=== PATIENT | male | born 1975 | race Caucasian/White ===

== ENCOUNTER 2021-10-01 18:56 | Emergency (ER) | payer OTHER, SELFPAY | END 2021-10-01 19:05 | disposition left against medical advice (07) | LOC: EXPBETH 18:58 | PROVIDERS: Emergency Provider Registered Nurse | DX: Z53.21 Procedure and treatment not carried out due to patient leaving prior to being seen by health care provider (principal) | CPT/HCPCS: 99199 ==

== ENCOUNTER 2022-03-06 06:03 | Observation (INO) | payer BC, SELFPAY ==
[2022-03-06] VITALS (21 sets, daily range): BP systolic 99–158; BP diastolic 56–88; PULSE 65–117; RESP 17–26; TEMP 36.3–37.2; O2SAT 92–100; BMI 25.2
--- NOTE | ~2022-03-06 | US_ITS ---
EXAMINATION: US right upper quadrant DATE: 03/07/2022 13:13 INDICATION: Abdominal pain. TECHNIQUE: Multiple grayscale and Doppler ultrasound images of the abdomen were obtained. COMPARISON: CT abdomen and pelvis 03/06/2022 FINDINGS: The visualized portions of the head, body, and tail of the pancreas are normal. The liver i s normal without focal lesion. There is normal flow in main portal vein. The gallbladder is absent. T he common duct is normal and measures 3 mm. IMPRESSION: 1. Normal right upper quadrant ultrasound status post cholecystectomy. Reviewed, dictated and finalized at location A.
--- NOTE | ~2022-03-06 | CT_ITS ---
EXAMINATION: CT abdomen pelvis w con DATE: 03/06/2022 08:31 INDICATION: Abdominal pain. Nausea and vomiting. TECHNIQUE: Computed tomography (CT) of the abdomen and pelvis was performed with 100 mL Omnipaque 300 intravenous contrast. Automated exposure control and iterative reconstruction technique were employe d. The dose-length product was 471.07 mGy-cm. COMPARISON: None. FINDINGS: The visualized portions of the lung bases demonstrate minimal atelectasis on the right. No pleural effusion. The heart size is normal. No pericardial effusion. In the left hepatic lobe, there is a shunt from the left portal vein to the middle hepatic vein. Calcifications in the spleen are con sistent with old granulomatous disease. There are changes of cholecystectomy. The pancreas, adrenal g lands, and kidneys are normal. There are no dilated loops of bowel. The appendix is normal. There are no pathologically enlarged lymph nodes. There is no free intraperitoneal fluid. There is mild lumbar spondylosis. IMPRESSION: 1. No specific etiology for the patient's symptoms. Reviewed, dictated and finalized at location A.
--- NOTE | ~2022-03-06 | XR_ITS ---
EXAMINATION: XR chest 1V portable DATE: 03/06/2022 06:47 INDICATION: Weakness, nausea and vomiting TECHNIQUE: frontal view of the chest was obtained. COMPARISON: None FINDINGS: Subtle small airspace opacity with sharp linear margins along one side of the left lower lung zone wh ich could represent either airspace disease along side a fissure or a skinfold. No other airspace opa cities, pulmonary edema, pleural effusion or pneumothorax. The cardiomediastinal silhouette is normal . A few likely old left rib fractures. Cholecystectomy clips in right upper quadrant. IMPRESSION: 1. Subtle small airspace opacity at the left lower lung zone which could represent atelectasis, pleur al parenchymal scarring related to a few old left-sided rib fractures, small focus of pneumonia or ar tifactual appearance of a skinfold. Reviewed, dictated and finalized at location A. IMPRESSION: 1. Subtle small airspace opacity at the left lower lung zone which could repres ent atelectasis, pleural parenchymal scarring related to a few old left-sided r ib fractures, small focus of pneumonia or artifactual appearance of a skinfold.
--- NOTE | ~2022-03-06 | XR_ITS ---
EXAMINATION: XR chest 2V DATE: 03/07/2022 12:28 INDICATION: Cough TECHNIQUE: PA and lateral views of the chest were obtained. COMPARISON: Chest radiograph dated 03/06/2022 FINDINGS: The lungs remain clear with no focal airspace opacities, pulmonary edema, pleural effusion or pneumot horax. The cardiomediastinal silhouette is normal. Visualized bones and soft tissues are unremarkable . IMPRESSION: 1. No acute cardiopulmonary disease. Reviewed, dictated and finalized at location A.
[2022-03-06 06:19] LABS: Glucose Point of Care > 500 mg/dl (65-105)
[2022-03-06 06:42] LABS: Alveolar/Arterial O2 Gradient 14.9 mmHg; Base Excess ABG -0.7 mEq/l (+/-2.0); Carboxyhemoglobin 1.8 % THb (0-2.0); Fractional Inspired Oxygen 21 %; Methemoglobin ABG 0.3 %THb (0-1.5); Oxygen Saturation ABG 96.7 % (95.0-100.0); Oxyhemoglobin 94.2 % THb (90.0-100.0); PCO2 ABG 39.7 mmHg (35.0-45.0); PO2 ABG 87.3 mmHg (80.0-100.0); PO2 FiO2 Ratio Arterial Blood 4.16 %; Reduced Hemoglobin 3.7 %THb (0-5.0); Total Hemoglobin 15.8 g/dL (12.0-18.0); pH ABG 7.399 (7.350-7.450)
[2022-03-06 06:43] LABS: Device ROOM AIR; Modified Allen's Test Pass; Site Drawn RIGHT RADIAL
[2022-03-06 06:53] LABS: Basophils Absolute Auto 0.1 K/mm3 (0.0-0.1); Basophils Percent Auto 0.5 % (0.2-1.2); Eosinophils Absolute Auto 0.3 K/mm3 (0-0.3); Eosinophils Percent Auto 2.1 % (0-4.4); Hematocrit 47.2 % (42.0-52.0); Hemoglobin 15.4 g/dL (14.0-18.0); Immature Granulocyte Absolute 0.07 K/mm3 (0.00-0.031); Immature Granulocyte Percent A 0.6 % (0-0.5); Lymphocytes Absolute Auto 2.36 K/mm3 (0.9-3.2); Lymphocytes Percent Auto 18.9 % (18.3-44.2); Mean Corpuscular HGB Conc 32.6 g/dl (32-36); Mean Corpuscular Hemoglobin 30.4 pg (26-34); Mean Corpuscular Volume 93.1 fl (80-100); Mean Platelet Volume 10.2 fl (7.4-10.4); Monocytes Absolute Auto 0.8 K/mm3 (0.1-0.6); Monocytes Percent Auto 6.6 % (2.6-8.5); Neutrophils Absolute Auto 8.9 K/mm3 (1.3-6.7); Neutrophils Percent Auto 71.3 % (45.5-73.1); Platelet Count Result 311 k/mm3 (150-375); Red Blood Count 5.07 M/mm3 (4.6-6.20); Red Cell Distribution Width 13.8 % (11.5-14.5); White Blood Count 12.5 K/mm3 (4.5-10.0)
[2022-03-06 06:57] LABS: Appearance Urine Clear (Clear); Bilirubin Urine Negative (Negative); Blood Urine Negative (Negative); Color Urine Yellow (Yellow); Glucose Urine UA 3+ mg/dL (Negative); Ketones Urine 1+ mg/dL (Negative); Leukocyte Esterase Ur Negative LEU/UL (Negative); Nitrate Urine Negative (Negative); Protein Urine Negative (Negative); Specific Grav Ur <= 1.005 (1.001-1.035); Urobilinogen Urine 0.2 mg/dL (<2.0); pH Urine 5.5 (5.0-9.0)
[2022-03-06 07:01] LABS: Mucus Urine Rare /lpf; RBC Urine 0-2 /hpf (0-2); WBC Urine 0-3 /hpf
[2022-03-06 07:03] LABS: Lactic Acid Reflex 1.8 mmol/L (0.7-2.0)
[2022-03-06] MEDS: SODIUM CHLORIDE 0.9% IV 1,000 ML 999 ML IV CONT ×4 (07:03→16:20)
[2022-03-06 07:05] LABS: Add Urine Microscopic? YES
[2022-03-06 07:07] LABS: Beta-Hydroxybutyrate/Acetoacetate 1.26 mmol/L (0.02-0.27)
[2022-03-06 07:08] LABS: Alanine Aminotransferase 22 U/L (6-50); Albumin Level 4.3 g/dL (3.5-5.1); Alkaline Phosphatase 133 U/L (38-126); Anion Gap 10 mmol/L (8-16); Aspartate Amino Transferase 32 U/L (17-59); Blood Urea Nitrogen 16 mg/dL (9-20); Calcium 9.2 mg/dL (8.4-10.2); Carbon Dioxide 23 mmol/L (22-30); Chloride 102 mmol/L (98-107); Estimated CRCL calculation 120 ml/min; Estimated Glomerular Filt Rate > 60; Glucose 502 mg/dL (65-110); Lipase 92 U/L (23-300); Magnesium 1.8 mg/dL (1.6-2.3); Phosphorus 2.7 mg/dL (2.5-4.5); Potassium 4.7 mmol/L (3.4-5.0); Sodium 135 mmol/L (137-145)
--- NOTE | 2022-03-06 07:08 | ED.RECABL ---
HPI - Recheck/Abnormal Lab/Rx General Chief Complaint: Recheck/Abnormal Lab/Rx Stated Complaint: dka Time Seen by Provider: 03/06/22 07:06 History of Present Illness HPI narrative: The patient is a 46-year-old male with a history of type 1 diabetes, on an insulin pump, presenting to the emergency department for evaluation of nausea, vomiting, abdominal pain in the setting of hyperglycemia at home. Patient noted that his blood sugars were greater than 500s beginning yesterday and he was able to have the pump help control them and they decreased into the 400s overnight. Patient then awakened and had significant lower abdominal pain, recurrent nausea and vomiting this morning and blood sugars have been greater than 500s throughout the morning. Patient has a history of recurrent DKA approximately once yearly per who is providing most of the history. Patient denies fever but does report chills. He denies chest pain, cough or dyspnea. He denies recent travel. He reports loose stools without blood or mucus present. Related Data Allergies Allergy/AdvReac Type Severity Reaction Status Date / Time No Known Allergies Allergy Verified 03/06/22 08:24 Review of Systems Review of Systems: CONSTITUTIONAL: Denies fever, reports chills and diaphoresis ENT: Denies rhinorrhea, congestion, sore throat, or otalgia. CARDIOVASCULAR: Denies chest pain, palpitations, or edema. RESPIRATORY: Denies cough or dyspnea. GASTROINTESTINAL: Reports abdominal pain, nausea and vomiting, reports loose stools/diarrhea GENITOURINARY: Denies dysuria or hematuria. SKIN: Denies rash or itching. MUSCULOSKELETAL: Denies back pain, joint pain, reports myalgias NEUROLOGIC: Denies headache, numbness, or weakness. [facility] Past Medical History Medical History Depression Hypothyroidism Long-term insulin use Type 1 diabetes mellitus Social History Social History Smoking status: Current some day smoker Second hand tobacco smoke exposure: Yes Alcohol intake: never Additional occupation/education comments: Construction Exam Narrative: GENERAL: Awake, alert, ill appearing HEAD: Normocephalic, atraumatic. EYES: PERRLA and EOMI. ENT: Nares clear, no rhinorrhea or epistaxis. Mucous membranes dry NECK: Supple. CHEST: No respiratory distress, breathing even and non labored HEART: Regular rate, sinus rhythm ABDOMEN:Non distended, tender in all 4 quadrants without rebound, rigidity or guarding EXTREMITIES: Normal range of motion. No edema. SKIN: Warm, dry, no rash. NEURO:No focal deficits. Alert and oriented x3, pt ambulatory with narrow based, steady gait Course Vital Signs Vital signs: Vital Signs Temperature 36.5 C 03/06/22 06:14 Pulse Rate 75 03/06/22 06:14 Respiratory Rate 22 H 03/06/22 06:14 Blood Pressure 134/74 03/06/22 06:14 Pulse Oximetry 97 03/06/22 06:14 Oxygen Delivery Room Air 03/06/22 06:14 Temperature 36.5 C 03/06/22 06:14 Pulse Rate 66 03/06/22 07:32 Respiratory Rate 23 H 03/06/22 07:32 Blood Pressure 156/70 H 03/06/22 07:32 Pulse Oximetry 95 03/06/22 07:32 Oxygen Delivery Room Air 03/06/22 06:14 MDM - Recheck/Abnormal Lab/Rx MDM Narrative Medical decision making narrative: Patient is a 46-year-old male presenting to the emergency department for evaluation of nausea, vomiting, abdominal pain as well as elevated blood glucose levels despite insulin pump on and appropriately delivering medication per patient. At time of assessment, patient is ill-appearing, dehydrated, without significant tachycardia. Differential includes electrolyte derangement, hyperglycemia, DKA, gastroenteritis, infection. IV access obtained and labs are drawn. Patient was given a total of 2 L of IV fluids, and an additional third liter based on clinical status and hyperglycemia. Patient without anion gap or metabol
[2022-03-06 07:27] LABS: SARS-CoV-2 RNA PCR Negative
[2022-03-06] MEDS: ONDANSETRON INJ 4 MG/2 ML VIAL IV PUSH ×2 (08:20→12:29)
[2022-03-06 09:20] LABS: Glucose Point of Care 393 mg/dl (65-105)
[2022-03-06] MEDS: INSULIN HUMAN REGULAR (*BKC) 100 UNITS/ML 9 UNITS IV PUSH ×2 (09:29→16:46)
[2022-03-06] MEDS: METOCLOPRAMIDE HCL INJ 10 MG/2 ML VIAL IV PUSH ×2 (09:29→14:19)
[2022-03-06 09:55] LABS: Glucose Point of Care 364 mg/dl (65-105)
[2022-03-06 10:00] LABS: Influenza A QL RT-PCR Negative (Negative); Influenza B QL RT-PCR Negative (Negative)
[2022-03-06] MEDS: LACTATED RINGERS 1,000 ML 125 ML IV CONT (10:32)
[2022-03-06 10:59] LABS: Lactic Acid Reflex 2.2 mmol/L (0.7-2.0)
[2022-03-06 11:17] LABS: Glucose Point of Care 281 mg/dl (65-105)
--- NOTE | 2022-03-06 11:21 | PC.NURSE ---
Patient report received from SAMMY Pablo. All questions answered and care of patient assumed.
--- NOTE | 2022-03-06 12:36 | ADMGEN ---
This patient, Jesus Galaviz, was admitted to IMU Room 209-. Patient/family oriented to hospital policies and general routines including ID bracelet, bed and alarms, visiting hours, pain management, procedures, bathroom and other care routines, personal items, smoking policy, room service/diet, and visiting hours. Information on how to activate the Rapid Response Team has been discussed. Patient/Family are encouraged to report perceived risks to care and to ask questions if they do not understand what they are told or what they should do.
[2022-03-06 12:45] LABS: Glucose Point of Care 315 mg/dl (65-105)
[2022-03-06 13:46] LABS: Reflex Lactic Acid Yes or No Add Lactic
--- NOTE | 2022-03-06 13:56 | PM.IMHP ---
H&P: HPI History of Present Illness Date/Time: 03/06/22 13:56 this is a 46-year-old male patient with the history of diabetes type 1 on insulin pump. He also has a history of depression. The patient was last seen by his agricultural education teacher JOHN Campbell on 01/17/2022who stated that he had no complications on his Medtronic 770 G and was doing well at that time. Patient was over writing boluses at that time. The patient gets a basal rate and boluses sometimes. The patient stated he has been very stressed out recently due to his tartar choosing to live with her mom. Last noted A1c was 6.1 January of this year. The patient noted that he has been having trouble affording his insulin and pump supplies. He reached out to [employer] to get patient assistance. Today the patient came to the emergency room for evaluation of nausea, vomiting, and abdominal pain. The patient stated that his blood sugars have been running greater than 500 that started yesterday. The patient was able to give himself some boluses and his blood sugar decreased into the 400s during the night. His significant other was here earlier and giving information. The patient is spitting up mucus at this time. His white count is noted to be 12.5 today. Sodium 135. Initially his blood sugar was greater than 500 and then came down to 281 and then 315. Lactic acid is 2.2. Urine has 3+ glucose and 1+ ketones. The patient was given Zofran and IV fluids in the emergency room. Abdominal CT shows no specific etiology for patient's symptoms. Chest x-ray was read as 1. Subtle small airspace opacity at the left lower lung zone which could represent atelectasis, pleural parenchymal scarring related to a few old left-sided rib fractures, small focus of pneumonia or artifactual appearance of a skinfold. He was also given Reglan and regular insulin IV. The patient is being admitted to observation status on the date of service of 03/06/2022. Chief Complaint: Symptoms of DKA with elevated blood sugar and nausea. Review of Systems Review of Systems: All systems reviewed & are unremarkable except as noted in HPI and below Constitutional: Constitutional: Reports as per HPI and Reports no additional constitutional complaints Eyes: Eyes: Reports as per HPI and Reports no additional eye complaints ENT: Reports system reviewed and no additional complaints, except as documented and Reports Normal hearing present Cardiovascular: Cardiovascular: Reports no additional cardiovascular complaints Respiratory: Respiratory: Reports no additional respiratory complaints and Reports no additional respiratory complaints Gastrointestinal: Gastrointestinal: Reports as per HPI and Reports no additional gastrointestinal complaints Musculoskeletal: Musculoskeletal: Reports no additional musculoskeletal complaints Integumentary/Breasts: Skin/Breast: Reports system reviewed and no additional complaints, except as docu and Reports as per HPI Neurologic: Reports system reviewed and no additional complaints, except as documented, Reports as per HPI and Reports Normal hearing present Psychiatric: Psychiatric: Reports no additional psychiatric complaints and Reports as per HPI Endocrine: Endocrine: Reports no additional endocrine complaints Hematologic/Lymphatic: Hematologic/Lymphatic: Reports no additional hematologic/lymphatic complaints Allergic/Immunologic: Allergic/Immunologic: Reports no additional allergic/immunologic complaints PMFSH Past Medical History Medical History Depression Hypothyroidism Long-term insulin use Type 1 diabetes mellitus Surgical History Surgical History (Updated 03/06/22 @ 14:10 by Aleja Dowd NP) Hx of cholecystectomy S/P knee surgery Left knee Family History Family History Father Lung cancer metastatic to brain Lung cancer associated cerebellar ataxia Mother A
[2022-03-06] MEDS: LORazepam INJ (*CRX) 2 MG/ML VIAL 0.5 MG IV PUSH (14:44)
[2022-03-06 16:12] LABS: Lactic Acid 4.7 mmol/L (0.7-2.0)
--- NOTE | 2022-03-06 16:15 | PC.NURSE ---
Notified Aleja Dowd NP of critical lactic acid of 4.7 and blood glucose of 449. New order for 1L NS bolus and to give 6 units of Novolog now.
[2022-03-06] MEDS: INSULIN ASPART (*BKC) 100 UNITS/ML SUB-Q ×2 (16:21→21:33)
[2022-03-06] MEDS: SODIUM CHLORIDE 0.9% IV 2,700 ML/1,000 ML BAG 999 ML IV CONT ×3 (16:55→17:54)
[2022-03-06 17:27] LABS: Glucose Point of Care 449 mg/dl (65-105)
[2022-03-06 20:13] LABS: Lactic Acid Reflex 2.1 mmol/L (0.7-2.0)
[2022-03-06 21:02] LABS: Glucose Point of Care 264 mg/dl (65-105)
[2022-03-06] MEDS: FAMOTIDINE 20 MG/2 ML VIAL IV PUSH (21:32)
[2022-03-06 23:28] LABS: Glucose Point of Care 282 mg/dl (65-105)
[2022-03-07] VITALS (10 sets, daily range): BP systolic 103–143; BP diastolic 57–84; PULSE 75–107; RESP 16–18; TEMP 36.3–37.4; O2SAT 96–99; BMI 26.1
[2022-03-07] MEDS: INSULIN ASPART (*BKC) 100 UNITS/ML SUB-Q ×5 (00:52→17:29)
[2022-03-07 05:13] LABS: Glucose Point of Care 311 mg/dl (65-105)
[2022-03-07 05:15] LABS: Basophils Percent Auto 0.2 % (0.2-1.2); Hematocrit 36.5 % (42.0-52.0); Hemoglobin 12.4 g/dL (14.0-18.0); Immature Granulocyte Absolute 0.11 K/mm3 (0.00-0.031); Immature Granulocyte Percent A 0.5 % (0-0.5); Lymphocytes Absolute Auto 2.32 K/mm3 (0.9-3.2); Lymphocytes Percent Auto 10.6 % (18.3-44.2); Mean Corpuscular Hemoglobin 30.9 pg (26-34); Mean Platelet Volume 10.7 fl (7.4-10.4); Monocytes Absolute Auto 1.5 K/mm3 (0.1-0.6); Monocytes Percent Auto 6.9 % (2.6-8.5); Neutrophils Percent Auto 81.8 % (45.5-73.1); Platelet Count Result 285 k/mm3 (150-375); Red Blood Count 4.01 M/mm3 (4.6-6.20); Red Cell Distribution Width 14.1 % (11.5-14.5); White Blood Count 21.9 K/mm3 (4.5-10.0)
[2022-03-07 05:25] LABS: Alanine Aminotransferase 16 U/L (6-50); Albumin Level 3.1 g/dL (3.5-5.1); Alkaline Phosphatase 95 U/L (38-126); Anion Gap 9 mmol/L (8-16); Aspartate Amino Transferase 24 U/L (17-59); Bilirubin,Total 2.6 mg/dL (0.2-1.3); Blood Urea Nitrogen 19 mg/dL (9-20); Calcium 8.4 mg/dL (8.4-10.2); Carbon Dioxide 19 mmol/L (22-30); Chloride 109 mmol/L (98-107); Estimated CRCL calculation 120 ml/min; Estimated Glomerular Filt Rate > 60; Glucose 278 mg/dL (65-110); Potassium 4.4 mmol/L (3.4-5.0); Sodium 137 mmol/L (137-145)
[2022-03-07 05:25] LABS: Lactic Acid Reflex 1.2 mmol/L (0.7-2.0)
[2022-03-07] MEDS: LEVOTHYROXINE SODIUM 100 MCG TABLET PO (05:39)
[2022-03-07 08:19] LABS: Glucose Point of Care 342 mg/dl (65-105)
[2022-03-07] MEDS: FAMOTIDINE 20 MG/2 ML VIAL IV PUSH (08:31)
[2022-03-07] MEDS: ENOXAPARIN 40 MG/0.4 ML SYRINGE SUB-Q (10:36)
--- NOTE | 2022-03-07 10:37 | PM.IMPN ---
Progress Note: A&P Assessment and Plan (1) Type 1 diabetes mellitus with hyperosmolar hyperglycemic state (HHS): Code(s): E10.69 - Type 1 diabetes mellitus with other specified complication; E10.65 - Type 1 diabetes mellitus with hyperglycemia; E87.0 - Hyperosmolality and hypernatremia Status: Acute Assessment and Plan: Patient has insulin pump that was removed upon admission. Last known A1c last month was 6.1% - Glucose >500 on admission, +beta- hydroxybutyrate 1.26, +2 urine ketones, normal anion gap & TCO2. Lactic acid 4.7. - s/p 7 liters IV fluids this admission. - He received IV regular insulin x2 on 03/06 - lactic acid normalized after fluids. - Electrolytes stable. - Continue Accu-Cheks AC/HS with aspart 8 units plus sliding scale insulin - Start lantus 24 units daily - WBC 21 today, infection work-up pending. - Monitor I/O (2) Acute hyperglycemia: Code(s): R73.9 - Hyperglycemia, unspecified Status: Acute Assessment and Plan: -as above. (3) Leukocytosis: Qualifiers: Leukocytosis type: bandemia Qualified Code(s): D72.825 - Bandemia Code(s): D72.829 - Elevated white blood cell count, unspecified Status: Acute Assessment and Plan: WBC 21 today, up from 12 on admission. Likely reactive 2/2 acidosis. - UA negative - 03/06 blood cultures negative to date. - +epigastric tenderness, Tbili 2.0, amylase & lipase normal, RUQ US negative. - CXR negative - No diarrhea at this time. - Denies BENITEZ or URI symptoms and afebrile. - Repeat CBC tomorrow. (4) Intractable nausea and vomiting: Code(s): R11.2 - Nausea with vomiting, unspecified Status: Acute Assessment and Plan: -continue with antiemetics. Presumed 2/2 HHS. - Stable on regular diet. (5) Type 1 diabetes mellitus: Qualifiers: Diabetes mellitus complication status: with hyperglycemia Qualified Code(s): E10.65 - Type 1 diabetes mellitus with hyperglycemia Code(s): E10.9 - Type 1 diabetes mellitus without complications Status: Acute Assessment and Plan: - Continue basal/bolus insulin as above. - He reports taking 2 units/hour x 24 hours basal, plus intermittent boluses per sliding scale <5 units per meals. Pharmacy reports he uses ?80 units/day. - may resume insulin pump at discharge. - Continue outpatient management by Endocrinology. (6) Hypothyroidism: Qualifiers: Hypothyroidism type: acquired Qualified Code(s): E03.9 - Hypothyroidism, unspecified Code(s): E03.9 - Hypothyroidism, unspecified Status: Acute Assessment and Plan: - Continue with levothyroxine. (7) Depression: Code(s): F32.9 - Major depressive disorder, single episode, unspecified Status: Acute Assessment and Plan: - Recommend counseling and possibly SSRI. Appears stable. Will defer to PCP. Plan CODE STATUS: FULL CODE Disposition: Home when medically stable. Time Spent With Patient Time with patient: 25 - 35 minutes Subjective Date/time seen: 03/07/22 10:37 Interval history: Patient is a 46 yo male with insulin dependent diabetes mellitus with on insulin pump therapy. He presented to the ED for evaluation of intractable nausea, vomiting and abdominal pain. He was found to have glucose >500 and was admitted for [facility]. Patient found sitting up in the chair. He denies chest pain, SOB, palpitations, N/V/D, open wounds, BENITEZ, sore throat, or dysuria. He has nonproductive cough. No fevers overnight. He received a total of 7 liters IVF since admission. Review of Systems Review of Systems: All systems reviewed & are unremarkable except as noted in HPI and below Exam Narrative: General: No acute distress.? Well-developed and well-groomed?adult male sitting up in the chair. No oxygen. Mental Status/Psych: Awake, alert and oriented to person and place with clear speech. Neutral mood and
[2022-03-07 11:07] LABS: Amylase 52 U/L (30-110); Lipase 28 U/L (23-300)
[2022-03-07] MEDS: INSULIN GLARGINE (*BKC) 100 UNITS/ML 24 UNITS SUB-Q (11:23)
[2022-03-07] MEDS: INSULIN ASPART (*BKC) 100 UNITS/ML 8 UNITS SUB-Q ×2 (12:10→17:30)
[2022-03-07 12:16] LABS: Glucose Point of Care 390 mg/dl (65-105)
[2022-03-07 12:24] LABS: Appearance Urine Clear (Clear); Bilirubin Urine Negative (Negative); Blood Urine Negative (Negative); Color Urine Yellow (Yellow); Glucose Urine UA 2+ mg/dL (Negative); Ketones Urine 1+ mg/dL (Negative); Leukocyte Esterase Ur Negative LEU/UL (Negative); Nitrate Urine Negative (Negative); Protein Urine Negative (Negative); Specific Grav Ur 1.015 (1.001-1.035); Urobilinogen Urine 0.2 mg/dL (<2.0)
[2022-03-07 12:33] LABS: Mucus Urine Rare /lpf; RBC Urine 0-2 /hpf (0-2); WBC Urine 0-3 /hpf
[2022-03-07 12:34] LABS: Add Urine Microscopic? YES
--- NOTE | 2022-03-07 14:42 | PCNSR ---
On 03/07/22, the student, Latha Duque, provided care and completed [facility] documentation on this patient. I have reviewed the student's documentation and agree with the findings.
--- NOTE | 2022-03-07 15:35 | PC.NURSE ---
Notified Izabela Montes NP of different readings regarding patient's blood glucose. The hospital machine read 346, pt's home [employer] system read his blood glucose at 267. New order to obtain BMP to check comparison on blood glucose levels.
[2022-03-07 16:07] LABS: Anion Gap 6 mmol/L (8-16); Blood Urea Nitrogen 17 mg/dL (9-20); Calcium 8.9 mg/dL (8.4-10.2); Carbon Dioxide 26 mmol/L (22-30); Chloride 103 mmol/L (98-107); Estimated CRCL calculation 120 ml/min; Estimated Glomerular Filt Rate > 60; Glucose 281 mg/dL (65-110); Potassium 3.8 mmol/L (3.4-5.0); Sodium 135 mmol/L (137-145)
[2022-03-07 16:08] LABS: Glucose Point of Care 346 mg/dl (65-105)
--- NOTE | 2022-03-07 16:10 | PC.NURSE ---
BMP results indicated that blood glucose level was 281. Izabela Montes NP notified of results. New order to administer Novolog insulin per sliding scale, treating the blood glucose of 281. Pt stable for downgrade to med/tele.
[2022-03-07 18:04] LABS: Glucose Point of Care 292 mg/dl (65-105)
[2022-03-07 20:24] LABS: Glucose Point of Care 104 mg/dl (65-105)
--- NOTE | 2022-03-07 20:28 | PC.NURSE ---
PATIENT C/O LOW BLOOD SUGAR. HOSPITAL GLUCOMETER READ 101. PATIENTS [employer] SYSTEM WAS SAYING THAT HIS BLOOD SUGAR WAS 69. PATIENT STATED THAT IT FELT LOW. PATIENT GIVEN 2 ORANGE JUICE AND WE WILL CONTINUE TO MONITOR.
--- NOTE | 2022-03-07 21:39 | PC.NURSE ---
PATIENTS [employer] AMINA SYSTEM IS SAYING THAT PATIENT BLOOD GLUCOSE IS 69. PATIENT WAS GIVEN A SNACK OF TURKEY SANDWICH AND CHIPS WITH JUICE. WE WILL CONTINUE TO MONITOR.
[2022-03-08] VITALS: BP 153/85; PULSE 77; RESP 16; TEMP 36.6; O2SAT 99
[2022-03-08 00:33] LABS: Glucose Point of Care 134 mg/dl (65-105)
[2022-03-08 04:00] VITALS: PULSE 75
[2022-03-08 04:52] LABS: Basophils Percent Auto 0.3 % (0.2-1.2); Eosinophils Absolute Auto 0.1 K/mm3 (0-0.3); Eosinophils Percent Auto 0.6 % (0-4.4); Hematocrit 33.2 % (42.0-52.0); Hemoglobin 10.9 g/dL (14.0-18.0); Immature Granulocyte Absolute 0.04 K/mm3 (0.00-0.031); Immature Granulocyte Percent A 0.4 % (0-0.5); Lymphocytes Absolute Auto 2.28 K/mm3 (0.9-3.2); Lymphocytes Percent Auto 25.2 % (18.3-44.2); Mean Corpuscular HGB Conc 32.8 g/dl (32-36); Mean Corpuscular Hemoglobin 30.4 pg (26-34); Mean Corpuscular Volume 92.7 fl (80-100); Mean Platelet Volume 9.5 fl (7.4-10.4); Monocytes Absolute Auto 0.7 K/mm3 (0.1-0.6); Monocytes Percent Auto 7.6 % (2.6-8.5); Neutrophils Absolute Auto 5.9 K/mm3 (1.3-6.7); Neutrophils Percent Auto 65.9 % (45.5-73.1); Platelet Count Result 232 k/mm3 (150-375); Red Blood Count 3.58 M/mm3 (4.6-6.20); Red Cell Distribution Width 13.7 % (11.5-14.5)
[2022-03-08 05:07] LABS: Lactic Acid Reflex 0.8 mmol/L (0.7-2.0)
[2022-03-08 05:09] LABS: Alanine Aminotransferase 17 U/L (6-50); Albumin Level 2.8 g/dL (3.5-5.1); Alkaline Phosphatase 70 U/L (38-126); Anion Gap 4 mmol/L (8-16); Aspartate Amino Transferase 26 U/L (17-59); Bilirubin,Total 2.3 mg/dL (0.2-1.3); Blood Urea Nitrogen 13 mg/dL (9-20); Calcium 8.3 mg/dL (8.4-10.2); Carbon Dioxide 27 mmol/L (22-30); Chloride 106 mmol/L (98-107); Estimated CRCL calculation 136 ml/min; Estimated Glomerular Filt Rate > 60; Glucose 90 mg/dL (65-110); Potassium 3.6 mmol/L (3.4-5.0); Sodium 137 mmol/L (137-145)
[2022-03-08 05:56] LABS: Procalcitonin 2.4 ng/mL
--- NOTE | 2022-03-08 06:35 | PC.NURSE ---
BG 53 on Nicol[employer] CGM. Gave 8 oz milk and 1 packet jayro crackers (17g carb).
[2022-03-08] MEDS: LEVOTHYROXINE SODIUM 100 MCG TABLET PO (06:37)
[2022-03-08 08:00] VITALS: BP 146/81; PULSE 68; PULSE 70; RESP 20; TEMP 36.6; O2SAT 98
[2022-03-08 08:09] LABS: Glucose Point of Care 141 mg/dl (65-105)
[2022-03-08] MEDS: ENOXAPARIN 40 MG/0.4 ML SYRINGE SUB-Q (08:10)
[2022-03-08] MEDS: PANTOPRAZOLE 40 MG TABLET PO (08:16)
--- NOTE | 2022-03-08 08:31 | PM.DS ---
DS: Admitting Diagnosis Discharge Date 03/08/2022 0854 Admitting Diagnosis Insulin dependent diabetes with hyperglycemia Lactic acidosis DS: Discharge Diagnosis Discharge Diagnosis (1) Type 1 diabetes mellitus with hyperosmolar hyperglycemic state (HHS): Code(s): E10.69 - Type 1 diabetes mellitus with other specified complication; E10.65 - Type 1 diabetes mellitus with hyperglycemia; E87.0 - Hyperosmolality and hypernatremia Status: Acute Assessment and Plan: Patient typically wears insulin pump that was removed upon admission. He reported increased stress and difficulty affording his insulin and pump supplies. He has reportedly reached out to [employer] for patient assistance. - Last known A1c last month was 6.1% - Glucose >500 on admission, +beta- hydroxybutyrate 1.26, +2 urine ketones, normal anion gap & TCO2. Lactic acid 4.7. - Patient received up to 7 liters IV fluids/boluses during his hospitalization. - anion gap remained stable, lactic acid improved to normal level following IV hydration, and electrolytes remained stable. - He received IV regular insulin x2 on 03/06 in the ED and x1 upon admission. When glucose was <350 he was transitioned to aspart moderate-sliding scale insulin. Blood sugars continued to be 250-350 mg/dL, while eating and then basal bolus insulin was started on 03/07 with Lantus 24 units daily and aspart 8 units plus sliding scale insulin. Blood sugars improved to <200 mg/dL. - He was counseled on water intake throughout the day while working outside in the heat. (2) Acute hyperglycemia: Code(s): R73.9 - Hyperglycemia, unspecified Status: Acute Assessment and Plan: -Blood sugar was treated and improved as above. (3) Leukocytosis: Qualifiers: Leukocytosis type: bandemia Qualified Code(s): D72.825 - Bandemia Code(s): D72.829 - Elevated white blood cell count, unspecified Status: Acute Assessment and Plan: WBC was 12 on admission and increased to 21 during his hospital stay. This was thought to be reactive secondary to acidosis. - UA was negative x2. - 03/06 blood cultures negative x48 hours. - +epigastric tenderness, Tbili 2.0, amylase & lipase normal, RUQ US negative for acute infection. - CXR negative for acute process. - No diarrhea noted during his hospital stay. - Denies BENITEZ or URI symptoms and he remained afebrile. - Repeat WBC was 9 on 03/08. (4) Intractable nausea and vomiting: Code(s): R11.2 - Nausea with vomiting, unspecified Status: Acute Assessment and Plan: - Treated with IV zofran PRN. N/V was thought to be secondary to HHS. - He was transitioned to diabetic diet with good tolerance. (5) Type 1 diabetes mellitus: Qualifiers: Diabetes mellitus complication status: with hyperglycemia Qualified Code(s): E10.65 - Type 1 diabetes mellitus with hyperglycemia Code(s): E10.9 - Type 1 diabetes mellitus without complications Status: Chronic Assessment and Plan: Management as above. - He reports taking 2 units/hour x 24 hours basal, plus intermittent boluses per sliding scale <5 units per meals. Pharmacy reports he uses ?80 units/day. - He reported that he would resume his insulin pump at discharge at current settings. He reported having all of his pump supplies at home. - Continue outpatient management by Endocrinology and follow up as previous scheduled. - He was counseled to report repeated low sugars or s/s hypoglycemia. (6) Hypothyroidism: Qualifiers: Hypothyroidism type: acquired Qualified Code(s): E03.9 - Hypothyroidism, unspecified Code(s): E03.9 - Hypothyroidism, unspecified Status: Chronic Assessment and Plan: - Continued with levothyroxine. Stable. (7) Depression: Code(s): F32.9 - Major depressive disorder, single episode, unspecified Status: Chronic Assessment and Plan: -
== END 2022-03-08 09:45 | disposition home or self-care (01) ==
LOC: ANHED 10:08 → ANHIMU 13:47
PROVIDERS: Emergency Medicine; Nurse Practitioner; Admitting Provider Chiropractor; Emergency Provider Emergency Medicine; Visit Provider Nurse Practitioner Family
DX: E10.65 Type 1 diabetes mellitus with hyperglycemia (principal); D72.829 Elevated white blood cell count, unspecified; R10.816 Epigastric abdominal tenderness; E03.9 Hypothyroidism, unspecified; F32.A Depression, unspecified; R11.2 Nausea with vomiting, unspecified; E87.0 Hyperosmolality and hypernatremia; E86.0 Dehydration; F12.11 Cannabis abuse, in remission; F17.210 Nicotine dependence, cigarettes, uncomplicated; F14.11 Cocaine abuse, in remission; Z72.89 Other problems related to lifestyle; Z20.822 Contact with and (suspected) exposure to COVID-19; Z79.4 Long term (current) use of insulin; Z96.41 Presence of insulin pump (external) (internal); Z79.899 Other long term (current) drug therapy
CPT/HCPCS: 36415; 36600; 71045; 71046; 74177; 76705; 80048; 80053; 81001; 82010; 82150; 82375; 82805; 82948; 83050; 83605; 83690; 83735; 84100; 84145; 85025; 87040; 87502; 96361; 96365; 96374; 96375; 96376; 99285; A9270; C9803; G0378; J0131; J1650; J1815; J2060; J2405; J2765; J7030; J7120; Q9967; U0003; U0005

== ENCOUNTER 2022-08-29 17:59 | Inpatient (IN) | payer BC, SELFPAY ==
--- NOTE | ~2022-08-29 | CT_ITS ---
EXAMINATION: CT abdomen pelvis w con DATE: 08/29/2022 19:40 INDICATION: abd pain TECHNIQUE: Computed tomography (CT) of the abdomen and pelvis was performed with 100 mL Omnipaque-350 intravenous contrast. Automated exposure control and iterative reconstruction technique were employe d. The dose-length product was 614.77 mGy-cm. COMPARISON: 03/06/2022. FINDINGS: Lower thorax: Unremarkable Liver: Left portal vein to left hepatic vein shunt. Biliary/Gallbladder: Gallbladder is absent. No bile duct dilation. Pancreas: No mass or duct dilation. Spleen: Granulomatous calcifications. Adrenals:No mass. Kidneys: Left midpole hypodensity, too small to characterize. No suspicious mass, stone, or hydroneph rosis. GI tract: No small or large bowel dilation. Suggestion of mild diffuse periventricular signal inflamm atory change. Normal appendix. Mesentery/Peritoneum: No ascites, mass, or free air. Diffuse mesenteric edema. Retroperitoneum: No mass. Pelvis: Pelvic organs are grossly within normal limits. Soft Tissues: Glucose moderate/insulin pump overlying the right lower quadrant which creates beam rich dening artifact. Bones: No acute osseous finding. IMPRESSION: Mild gissell-intestinal and mesenteric edema, may reflect a component of enteritis/colitis in the approp riate clinical context. Otherwise, no acute abdominopelvic process detected Reviewed, dictated and finalized at location K. [place] SHIFT MANAGER IMPRESSION: Mild gissell-intestinal and mesenteric edema, may reflect a component of enteritis /colitis in the appropriate clinical context. Otherwise, no acute abdominopelvi c process detected
--- NOTE | ~2022-08-29 | US_ITS ---
EXAMINATION: US abdomen limited DATE: 08/30/2022 12:46 INDICATION: Hyperbilirubinemia. TECHNIQUE: Multiple grayscale and Doppler ultrasound images of the abdomen were obtained. COMPARISON: CT abdomen and pelvis 08/29/2022 FINDINGS: The visualized portions of the head, body, and tail of the pancreas are normal. The liver i s normal without focal lesion. There is antegrade flow in main portal vein. The gallbladder is absent . The common duct is normal and measures 5 mm . IMPRESSION: 1. No etiology for hyperbilirubinemia. Reviewed, dictated and finalized at location A. [employer] LABORER
--- NOTE | ~2022-08-29 | XR_ITS ---
EXAMINATION: XR chest 1V portable DATE: 08/30/2022 05:30 INDICATION: Nausea and vomiting. TECHNIQUE: A single frontal view of the chest was obtained on 2 radiographs. COMPARISON: Chest 2 views 06/07/2022, CT abdomen and pelvis 08/29/2022 FINDINGS: There is no pneumonia, pleural effusion, or pneumothorax. The heart size is normal. There a re old healed left rib fractures. IMPRESSION: 1. No acute cardiopulmonary disease. Reviewed, dictated and finalized at location A. [employer]
[2022-08-29 18:19] VITALS: BP 149/62; PULSE 86; RESP 16; TEMP 36.9; O2SAT 98
[2022-08-29 18:22] LABS: Glucose Point of Care 332 mg/dl (65-105)
[2022-08-29] MEDS: SODIUM CHLORIDE 0.9% IV 1,000 ML 999 ML IV CONT ×2 (18:22→20:50)
[2022-08-29 18:32] LABS: Basophils Percent Auto 0.2 % (0.2-1.2); Eosinophils Percent Auto 0.1 % (0-4.4); Hematocrit 43.9 % (42.0-52.0); Hemoglobin 14.4 g/dL (14.0-18.0); Immature Granulocyte Absolute 0.08 K/mm3 (0.00-0.031); Immature Granulocyte Percent A 0.7 % (0-0.5); Lymphocytes Absolute Auto 1.28 K/mm3 (0.9-3.2); Lymphocytes Percent Auto 11.8 % (18.3-44.2); Mean Corpuscular HGB Conc 32.8 g/dl (32-36); Mean Corpuscular Hemoglobin 30.4 pg (26-34); Mean Corpuscular Volume 92.8 fl (80-100); Mean Platelet Volume 10.4 fl (7.4-10.4); Monocytes Absolute Auto 0.4 K/mm3 (0.1-0.6); Monocytes Percent Auto 3.7 % (2.6-8.5); Neutrophils Percent Auto 83.5 % (45.5-73.1); Platelet Count Result 302 k/mm3 (150-375); Red Blood Count 4.73 M/mm3 (4.6-6.20); White Blood Count 10.8 K/mm3 (4.5-10.0)
[2022-08-29 18:44] LABS: Alanine Aminotransferase 23 U/L (6-50); Albumin Level 4.5 g/dL (3.5-5.1); Alkaline Phosphatase 128 U/L (38-126); Anion Gap 13 mmol/L (8-16); Aspartate Amino Transferase 32 U/L (17-59); Bilirubin,Total 2.5 mg/dL (0.2-1.3); Blood Urea Nitrogen 14 mg/dL (9-20); Calcium 9.1 mg/dL (8.4-10.2); Carbon Dioxide 21 mmol/L (22-30); Chloride 105 mmol/L (98-107); Estimated Glomerular Filt Rate > 60; Glucose 326 mg/dL (65-110); Lipase 51 U/L (23-300); Magnesium 1.5 mg/dL (1.6-2.3); Phosphorus 2.8 mg/dL (2.5-4.5); Potassium 4.4 mmol/L (3.4-5.0); Sodium 139 mmol/L (137-145)
[2022-08-29 18:50] LABS: Beta-Hydroxybutyrate/Acetoacetate 1.82 mmol/L (0.02-0.27)
[2022-08-29] MEDS: MAGNESIUM SULF 2 GM/WATER 50ML 2 GM/50 ML BAG IVPB (19:05)
[2022-08-29 19:12] LABS: Influenza A QL RT-PCR Negative (Negative); Influenza B QL RT-PCR Negative (Negative); SARS-CoV-2 RNA PCR Negative
[2022-08-29] MEDS: ONDANSETRON INJ 4 MG/2 ML VIAL IV PUSH ×2 (19:13→20:57)
--- NOTE | 2022-08-29 19:59 | PM.IMHP ---
H&P: HPI History of Present Illness Date/Time: 08/29/22 19:59 Chief Complaint: NAUSEA AND VOMITING Narrative: This is a 47-year-old male with past medical history significant for type 1 diabetes, patient is on insulin pump. Presents to the emergency room due to recurrent nausea and vomiting of 3 day duration, has had some bright red blood present in the vomits, denies melena, has not able to keep anything down has not been able to eat, his sugars have been uncontrolled in the 300s to 400s. Patient denies any fevers, rigors, chills, cough, sputum production, pain or burning with urination. Patient has had this episodes in the past. Preliminary workup was significant for a beta hydroxybutyrate was 1.8, blood sugar was 326, bicarb was 21, anion gap 13. A CT of abdomen and pelvis was reported as: FINDINGS: Lower thorax: Unremarkable Liver: Left portal vein to left hepatic vein shunt.? Biliary/Gallbladder: Gallbladder is absent. No bile duct dilation. Pancreas: No mass or duct dilation. Spleen: Granulomatous calcifications. Adrenals:No mass. Kidneys: Left midpole hypodensity, too small to characterize. No suspicious mass, stone, or hydronephrosis. GI tract: No small or large bowel dilation. Suggestion of mild diffuse periventricular signal inflammatory change. Normal appendix. Mesentery/Peritoneum: No ascites, mass, or free air. Diffuse mesenteric edema. Retroperitoneum: No mass. Pelvis: Pelvic organs are grossly within normal limits. Soft Tissues: Glucose moderate/insulin pump overlying the right lower quadrant which creates beam hardening artifact. Bones:? No acute osseous finding. IMPRESSION: Mild gissell-intestinal and mesenteric edema, may reflect a component of enteritis/colitis in the appropriate clinical context. Otherwise, no acute abdominopelvic process detected Review of Systems Review of Systems: Nausea, vomiting, abnormal blood sugar Constitutional: Constitutional: Denies chills, Denies fever(s), Denies malaise, Denies night sweats and Denies weakness Eyes: Eyes: Denies change in vision ENT: Denies dysphagia, Denies vertigo, Denies dizziness and Denies odynophagia Respiratory: Respiratory: Denies chest congestion, Denies cough, Denies pain on inspiration and Denies dyspnea Gastrointestinal: Gastrointestinal: Denies abdominal pain, Denies coffee ground emesis, Denies GI cramping, Denies dysphagia, Denies dyspepsia, Denies heartburn, Denies diarrhea, Reports nausea and Reports vomiting Genitourinary: Genitourinary: Denies dysuria Musculoskeletal: Musculoskeletal: Denies back pain, Denies myalgias, Denies joint swelling and Denies muscle weakness Integumentary/Breasts: Skin/Breast: Denies rash Neurologic: Denies focal weakness and Denies Sensory deficit (Neuro) Psychiatric: Psychiatric: Reports no additional psychiatric complaints and Reports as per HPI Endocrine: Endocrine: Reports other (Abnormal blood sugars) Hematologic/Lymphatic: Hematologic/Lymphatic: Reports no additional hematologic/lymphatic complaints and Reports as per HPI Allergic/Immunologic: Allergic/Immunologic: Reports no additional allergic/immunologic complaints and Reports as per HPI PMFSH Past Medical History Medical History Anemia Depression High thyroid stimulating hormone (TSH) level Hypothyroidism Leukocytosis Long-term insulin use Type 1 diabetes mellitus with hyperosmolar hyperglycemic state (HHS) Surgical History Surgical History Hx of cholecystectomy S/P knee surgery Left knee Family History Family History Father Lung cancer metastatic to brain Lung cancer associated cerebellar ataxia Mother Acute myocardial infarction Cerebrovascular accident Social History Social History Social History: The
--- NOTE | 2022-08-29 20:03 | ED.GENADULT ---
HPI - General Adult General Chief complaint: Recheck/Abnormal Lab/Rx Stated complaint: vomiting/high blood sugar Time Seen by Provider: 08/29/22 18:03 Source: RN notes reviewed History of Present Illness HPI narrative: Patient presents emergency room from home for nausea vomiting. Patient states he began to have nausea vomiting this afternoon. States he is been numerous episodes he states he is a diabetic and his blood sugars have been running high in the 3-4 100s today. States he does have insulin pump on and has not missed any insulin. He denies any fevers or chills chest pain or shortness of breath he denies any abdominal pain or diarrhea. States that he was feeling fine earlier this morning Related Data Allergies Allergy/AdvReac Type Severity Reaction Status Date / Time No Known Allergies Allergy Verified 08/29/22 18:21 Review of Systems Review of Systems: Gen.: Denies fevers or chills ENT: Denies congestion Respiratory: Denies shortness of breath or cough CV: Denies chest pain or palpitations GI see HPI Musculoskeletal: Denies back pain or muscle pain Neuro: Denies numbness, tingling, weakness or focal weakness Skin: Denies rash Dr Mayes: Reports diabetes mellitus Except as documented, all other systems reviewed and negative [facility] Past Medical History Medical History Anemia Depression High thyroid stimulating hormone (TSH) level Hypothyroidism Leukocytosis Long-term insulin use Type 1 diabetes mellitus with hyperosmolar hyperglycemic state (HHS) Surgical History Surgical History Hx of cholecystectomy S/P knee surgery Left knee Family History Family History Father Lung cancer metastatic to brain Lung cancer associated cerebellar ataxia Mother Acute myocardial infarction Cerebrovascular accident Social History Social History Social History: The patient has a significant other. He has a daughter. 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 He denies any alcohol or illicit drugs. He does not have a durable power trust and estates attorney for healthcare. Code status full code Smoking packs per day: 0.5 Smoking cigarettes per day: 10.0 Years smoked: 30 Smoking pack-years: 15.00 Smoking status: Current every day smoker Tobacco type: cigarettes Second hand tobacco smoke exposure: Yes Alcohol intake: former Drinks per week: 90 Substance use: former Substance use type: former substance user, marijuana and crack/cocaine Last use: 2010 Additional occupation/education comments: Construction Spiritual care concerns: Yes Exam Narrative: APPEARANCE: No acute distress, nontoxic, resting in bed HEENT: Normocephalic, atraumatic, OMM RESPIRATORY: No respiratory distress, clear to auscultation bilaterally with no rhonchi wheezing or rales CARDIOVASCULAR: RRR s murmur ABDOMINAL: Soft nondistended mild diffuse tenderness palpation no rebound or guarding MUSCULOSKELETAl: Moves all extremities. No clubbing, cyanosis or edema. NEURO: Awake and alert. Following commands, speech normal, no focal deficits SKIN:: Warm, dry. Normal Color PSYCHIATRIC: Normal affect/mood Course Course Emergency Course: Reviewed patient's old records Patient given 2 L fluids in the ED continues to have nausea will admit at this time I had the patient remove his insulin pump Discussed with Dr. Cochran presentation work-up agrees with admission Discussed with patient and family results of workup and diagnosis. Discussed need for admission. Patient and family understand and agree to current treatment plan. Did have patient removed his insulin pump Vital Signs Vital signs: Vital Signs Temperature 98.5 F 08/29/22 18:19 Pulse Rate 86 08/29/22 18:
[2022-08-29 20:53] LABS: Appearance Urine Clear (Clear); Bilirubin Urine Negative (Negative); Blood Urine Trace-intact (Negative); Color Urine Yellow (Yellow); Glucose Urine UA 2+ mg/dL (Negative); Ketones Urine 3+ mg/dL (Negative); Leukocyte Esterase Ur Negative LEU/UL (Negative); Nitrate Urine Negative (Negative); Protein Urine Negative (Negative); Urobilinogen Urine 0.2 mg/dL (<2.0)
[2022-08-29] MEDS: FAMOTIDINE 20 MG/2 ML VIAL IV PUSH (20:57)
[2022-08-29] MEDS: PROMETHAZINE HCL 25 MG/ML AMPUL 12.5 MG IV PUSH (20:57)
[2022-08-29 21:14] LABS: Glucose Point of Care 326 mg/dl (65-105)
[2022-08-29 21:17] LABS: Mucus Urine Rare /lpf; RBC Urine 0-2 /hpf (0-2); WBC Urine 0-3 /hpf
[2022-08-29 21:18] LABS: Add Urine Microscopic? YES
[2022-08-29 22:15] VITALS: BMI 25.4
[2022-08-29 22:20] VITALS: BP 149/64; PULSE 106; RESP 20; TEMP 36.4; O2SAT 95
[2022-08-29] MEDS: SODIUM CHLORIDE 0.9% IV 1,000 ML 125 ML IV CONT (23:32)
[2022-08-30] VITALS (86 sets, daily range): BP systolic 73–147; BP diastolic 37–79; PULSE 70–113; RESP 13–29; TEMP 36.7–37.8; O2SAT 92–100
[2022-08-30] MEDS: PROMETHAZINE HCL 25 MG/ML AMPUL 12.5 MG IV PUSH (01:38)
[2022-08-30] MEDS: PANTOPRAZOLE SODIUM IV 40 MG VIAL IV PUSH ×3 (01:38→20:49)
[2022-08-30] MEDS: HALOPERIDOL LACTATE 5 MG/ML VIAL IM (03:16)
[2022-08-30 03:55] LABS: Glucose Point of Care 450 mg/dl (65-105)
[2022-08-30] MEDS: SODIUM CHLORIDE 0.9% IV 1,000 ML 999 ML IV CONT ×2 (04:00→06:06)
--- NOTE | 2022-08-30 04:00 | PC.NURSE ---
Insulin pump removed upon arrival to ICU.
[2022-08-30 04:06] LABS: Glucose Point of Care > 500 mg/dl (65-105)
[2022-08-30] MEDS: dexmedeTOMIDine 400 MCG/100 ML 400 MCG/100 ML BAG 23.05 MCG IV CONT (04:16)
[2022-08-30 04:51] LABS: Alanine Aminotransferase 35 U/L (6-50); Albumin Level 3.6 g/dL (3.5-5.1); Alkaline Phosphatase 93 U/L (38-126); Anion Gap 16 mmol/L (8-16); Aspartate Amino Transferase 33 U/L (17-59); Bilirubin,Total 2.2 mg/dL (0.2-1.3); Blood Urea Nitrogen 21 mg/dL (9-20); Calcium 8.1 mg/dL (8.4-10.2); Carbon Dioxide 13 mmol/L (22-30); Chloride 108 mmol/L (98-107); Estimated CRCL calculation 88 ml/min; Estimated Glomerular Filt Rate > 60; Glucose 497 mg/dL (65-110); Potassium 5.6 mmol/L (3.4-5.0); Sodium 137 mmol/L (137-145)
[2022-08-30] MEDS: INSULIN HUMAN REGULAR (*BKC) 100 UNITS in SODIUM CHLORIDE 0.9% IV 99 ML 8.74 UNITS IV CONT (04:57)
[2022-08-30 05:01] LABS: Basophils Percent Auto 0.2 % (0.2-1.2); Hematocrit 34.4 % (42.0-52.0); Hemoglobin 11.5 g/dL (14.0-18.0); Immature Granulocyte Absolute 0.21 K/mm3 (0.00-0.031); Immature Granulocyte Percent A 1.1 % (0-0.5); Lymphocytes Absolute Auto 0.94 K/mm3 (0.9-3.2); Lymphocytes Percent Auto 4.8 % (18.3-44.2); Mean Corpuscular HGB Conc 33.4 g/dl (32-36); Mean Corpuscular Hemoglobin 31.3 pg (26-34); Mean Corpuscular Volume 93.7 fl (80-100); Mean Platelet Volume 10.2 fl (7.4-10.4); Monocytes Absolute Auto 1.1 K/mm3 (0.1-0.6); Monocytes Percent Auto 5.4 % (2.6-8.5); Neutrophils Absolute Auto 17.3 K/mm3 (1.3-6.7); Neutrophils Percent Auto 88.5 % (45.5-73.1); Platelet Count Result 247 k/mm3 (150-375); Red Blood Count 3.67 M/mm3 (4.6-6.20); Red Cell Distribution Width 14.2 % (11.5-14.5); White Blood Count 19.5 K/mm3 (4.5-10.0)
[2022-08-30 05:02] LABS: Acanthocytes 2+ (NORMAL); Anisocytosis 1+ (NORMAL); Platelet Estimate Adequate (Adequate)
[2022-08-30 05:02] LABS: Alanine Aminotransferase 23 U/L (6-50); Albumin Level 3.6 g/dL (3.5-5.1); Alkaline Phosphatase 89 U/L (38-126); Anion Gap 16 mmol/L (8-16); Aspartate Amino Transferase 31 U/L (17-59); Bilirubin,Total 2.2 mg/dL (0.2-1.3); Blood Urea Nitrogen 21 mg/dL (9-20); Carbon Dioxide 13 mmol/L (22-30); Chloride 107 mmol/L (98-107); Estimated CRCL calculation 81 ml/min; Estimated Glomerular Filt Rate > 60; Glucose 498 mg/dL (65-110); Magnesium 1.7 mg/dL (1.6-2.3); Phosphorus 4.6 mg/dL (2.5-4.5); Sodium 136 mmol/L (137-145)
[2022-08-30 05:06] LABS: Alveolar/Arterial O2 Gradient 36.1 mmHg; Base Excess ABG -8.7 mEq/l (+/-2.0); Carboxyhemoglobin 0.3 % THb (0-2.0); Fractional Inspired Oxygen 21 %; HCO3 ABG 14.8 mEq/l (22.0-26.0); Methemoglobin ABG 0.6 %THb (0-1.5); Modified Allen's Test Pass; Oxygen Content ABG 16.4 %vol (16.0-22.0); Oxygen Saturation ABG 96.2 % (95.0-100.0); Oxyhemoglobin 94.4 % THb (90.0-100.0); PCO2 ABG 25.8 mmHg (35.0-45.0); PO2 ABG 82.7 mmHg (80.0-100.0); PO2 FiO2 Ratio Arterial Blood 3.94 %; Reduced Hemoglobin 4.7 %THb (0-5.0); Site Drawn LEFT RADIAL; Total Hemoglobin 12.3 g/dL (12.0-18.0); pH ABG 7.377 (7.350-7.450)
[2022-08-30 05:07] LABS: Device ROOM AIR
[2022-08-30 05:24] LABS: Barbiturate Screen Urine Negative (Negative); Benzodiazepines Screen Urine Negative (Negative)
[2022-08-30 05:24] LABS: Schistocytes None Seen (NORMAL)
[2022-08-30 05:25] LABS: Amphetamine Screen Urine Negative (Negative); Cannabinoid Screen Urine Positive (Negative); Cocaine Screen Urine Negative (Negative); Methadone Screen Urine Negative (Negative); Phencyclidine Screen Urine Negative (Negative)
[2022-08-30 05:46] LABS: Opiate Screen Urine Negative (Negative)
[2022-08-30 06:04] LABS: Lactic Acid Reflex 5.7 mmol/L (0.7-2.0)
[2022-08-30 06:09] LABS: Glucose Point of Care 488 mg/dl (65-105)
[2022-08-30 07:00] LABS: Glucose Point of Care 389 mg/dl (65-105)
[2022-08-30] MEDS: SODIUM CHLORIDE 0.9% IV 1,000 ML 125 ML IV CONT (07:09)
[2022-08-30 07:41] LABS: Reflex Lactic Acid Yes or No Add Lactic
[2022-08-30] MEDS: SODIUM BICARBONATE 8.4% 50 MEQ/50 ML SYRINGE IV PUSH (08:01)
[2022-08-30] MEDS: ALBUMIN HUMAN 25% 25 GM/100 ML 100 ML IVPB (08:01)
[2022-08-30 08:02] LABS: Lactic Acid 2.6 mmol/L (0.7-2.0)
[2022-08-30 08:04] LABS: INR 1.3; Partial Thromboplastin Time 28.2 SECONDS (22.3-36.8)
--- NOTE | 2022-08-30 08:08 | WPDCNINT ---
Assessment and Plan Assessment and plan (1) DKA (diabetic ketoacidosis): Code(s): E11.10 - Type 2 diabetes mellitus with ketoacidosis without coma Status: Acute Assessment and Plan: Patient presented with nausea, vomiting. Has history of diabetes, was found to have elevated blood sugars in the ER, was given 2 L IV fluids, transferred to the medical floor he started having some agitation delirium and confusion along with increased blood sugars to 500, anion gap metabolic acidosis and was transferred to the ICU for insulin infusion. -patient received a total of 5 L of IV fluids between ER and ICU -continue insulin infusion per DKA protocol -continue maintenance IV fluids per DKA protocol (2) Severe sepsis: Code(s): A41.9 - Sepsis, unspecified organism; R65.20 - Severe sepsis without septic shock Status: Acute Assessment and Plan: Patient presented with severe sepsis lactic acid of 5.7, WBC count of 19.5, anion gap metabolic acidosis, fevers -08/29/2022 CT scan of the abdomen and pelvis: Showed mild Ashley intestinal and mesenteric edema may reflect a component of enteritis/colitis -patient started on Zosyn and vancomycin (08/30/2022) -08/30/2022: Obtain blood cultures -will trend lactic acid levels -blood pressures been stable so far, if hypotensive, will place a central line and start him on pressors (3) Encephalopathy: Code(s): G93.40 - Encephalopathy, unspecified Status: Acute Assessment and Plan: Encephalopathy could be multifactorial related to hyperglycemia, metabolic acidosis likely related to DKA and/or lactic acidosis secondary to infection -continue to monitor and treat the underlying cause (4) Hyperbilirubinemia: Code(s): E80.6 - Other disorders of bilirubin metabolism Status: Acute Assessment and Plan: Hyperbilirubinemia: Will obtain hepatitis panel and right upper quadrant ultrasound -LFTs are within normal limits -check alcohol level -urine drug screen was positive for cannabinoids (5) Electrolyte imbalance: Code(s): E87.8 - Other disorders of electrolyte and fluid balance, not elsewhere classified Status: Acute Assessment and Plan: Hyperkalemia with a potassium of 6.0, currently on insulin infusion, will recheck -if potassium remains elevated will treat (6) Hematemesis: Code(s): K92.0 - Hematemesis Status: Acute Assessment and Plan: Patient had some bright red blood present in his vomitus. Could be related to tear secondary to nausea, and vomiting -started on Protonix IV q.12 hours -GI has been consulted Plan DVT prophylaxis: SCDs, possible GI bleed Stress ulcer prophylaxis: Protonix IV q.12 hours Nutrition: NPO for now Code Status: Full code Critical Care Time Spent: 51 minutes Due to a high probability of clinically significant, life threatening deterioration, the patient required my highest level of preparedness to intervene emergently and I personally spent this critical care time directly and personally managing the patient. This critical care time included obtaining a history; examining the patient; pulse oximetry; ordering and review of studies; arranging urgent treatment with development of a management plan; evaluation of patient's response to treatment; frequent reassessment; and discussions with other providers. It was exclusive of separately billable procedures and treating other patients and teaching time. Please see Assessment and Plan section and the rest of the note for further information on patient assessment and treatment This dictation may have been done utilizing a voice recognition system. Attempts have been made to correct errors. However, there may be uncorrected grammatical, spelling, and recognitions errors present. Motion Picture Projectionist Consult Note Consult date: 08/30/22 Reason for consult: Hyperglycemia, DKA, severe sepsis, altered mental status HPI: Jesus Galaviz is a 47 year old ma
[2022-08-30 08:14] LABS: Hepatitis B Surface Antigen Negative (Negative)
[2022-08-30 08:17] LABS: Glucose Point of Care 375 mg/dl (65-105)
[2022-08-30 08:20] LABS: HAV RESULT Negative (Negative); Hepatitis B Core IgM Result Negative (Negative)
[2022-08-30 08:34] LABS: Ethanol < 10 mg/dL (<10)
[2022-08-30 08:57] LABS: Glucose Point of Care 333 mg/dl (65-105)
[2022-08-30 09:43] LABS: Hepatitis C Virus Antibody Negative (Negative)
[2022-08-30 10:09] LABS: Glucose Point of Care 324 mg/dl (65-105)
[2022-08-30] MEDS: SODIUM CHLORIDE 0.9% IV 1,000 ML 150 ML IV CONT (10:32)
[2022-08-30] MEDS: INSULIN HUMAN REGULAR (*BKC) 100 UNITS in SODIUM CHLORIDE 0.9% IV 99 ML 18.48 UNITS IV CONT (10:51)
[2022-08-30 10:56] LABS: Glucose Point of Care 375 mg/dl (65-105)
[2022-08-30 11:22] LABS: Hemoglobin A1C 6.8 % (<5.7)
[2022-08-30 11:36] LABS: Anion Gap 8 mmol/L (8-16); Blood Urea Nitrogen 24 mg/dL (9-20); Calcium 8.3 mg/dL (8.4-10.2); Carbon Dioxide 18 mmol/L (22-30); Chloride 112 mmol/L (98-107); Estimated CRCL calculation 88 ml/min; Estimated Glomerular Filt Rate > 60; Glucose 326 mg/dL (65-110); Potassium 3.8 mmol/L (3.4-5.0); Sodium 138 mmol/L (137-145)
[2022-08-30 12:07] LABS: Glucose Point of Care 273 mg/dl (65-105)
[2022-08-30 13:10] LABS: Glucose Point of Care 194 mg/dl (65-105)
[2022-08-30] MEDS: KCL 20 MEQ/D5/0.45% SOD CHL 1,000 ML 150 ML IV CONT (13:16)
[2022-08-30 14:29] LABS: Glucose Point of Care 83 mg/dl (65-105)
[2022-08-30 15:25] LABS: Anion Gap 4 mmol/L (8-16); Blood Urea Nitrogen 21 mg/dL (9-20); Calcium 8.7 mg/dL (8.4-10.2); Carbon Dioxide 25 mmol/L (22-30); Chloride 110 mmol/L (98-107); Estimated CRCL calculation 96 ml/min; Estimated Glomerular Filt Rate > 60; Glucose 56 mg/dL (65-110); Potassium 3.6 mmol/L (3.4-5.0); Sodium 139 mmol/L (137-145)
[2022-08-30 15:51] LABS: Glucose Point of Care 84 mg/dl (65-105)
[2022-08-30 16:18] LABS: Glucose Point of Care 172 mg/dl (65-105)
[2022-08-30] MEDS: INSULIN GLARGINE (*BKC) 100 UNITS/ML 40 UNITS SUB-Q (16:18)
[2022-08-30] MEDS: GLUCOSE ORAL GEL 15 GM OF GLUCSE IN 37.5 GM TUBE PO (16:19)
--- NOTE | 2022-08-30 16:51 | WPDGICN ---
Assessment and Plan Assessment and plan (1) Intractable nausea and vomiting: Code(s): R11.2 - Nausea with vomiting, unspecified Status: Acute Assessment and Plan: resolved now probably from dka continue to monitor antiemetics prn, ok to advance diet (2) DKA (diabetic ketoacidosis): Code(s): E11.10 - Type 2 diabetes mellitus with ketoacidosis without coma Status: Acute Assessment and Plan: better, in icu (3) Severe sepsis: Code(s): A41.9 - Sepsis, unspecified organism; R65.20 - Severe sepsis without septic shock Status: Acute Assessment and Plan: treated (4) Encephalopathy: Code(s): G93.40 - Encephalopathy, unspecified Status: Acute Assessment and Plan: resolved (5) Type 1 diabetes mellitus with hypoglycemia without coma: Code(s): E10.649 - Type 1 diabetes mellitus with hypoglycemia without coma Status: Acute (6) Leukocytosis: Qualifiers: Leukocytosis type: bandemia Qualified Code(s): D72.825 - Bandemia Code(s): D72.829 - Elevated white blood cell count, unspecified Status: Acute (7) Hx of cholecystectomy: Code(s): Z90.49 - Acquired absence of other specified parts of digestive tract Status: Acute GI Consult Note Consult date/time: 08/30/22 16:51 Reason for consult: intractable n/v, DKA HPI: Jesus Galaviz is a 47 year old male with past medical history of diabetes type 1 with previous DAK, anemia, admitted to the hospital with intractable nausea and vomiting for 3 days and upper abdominal discomfort. His blood sugars were running high in the 300-400 range on the day of admission despite his insulin.? He was briefly confused on the floor and then admitted to ICU, treated medically and now much better, no more vomiting and his mental status is back to normal. Blood work showed WBC count of 19.5, potassium of 6.0, CO2 of 13, creatinine 1.20, anion gap 16, lactic acid of 5.7 and total bilirubin of 2.2.? CT scan of the abdomen and pelvis showed mid gissell intestinal and mesenteric edema may reflect a component of enteritis/colitis. He is hungry now and feeling better. Review of Systems Review of Systems: Gen.: Denies fevers or chills ENT: Denies congestion Respiratory: Denies shortness of breath or cough CV: Denies chest pain or palpitations GI see HPI Musculoskeletal: Denies back pain or muscle pain Neuro: Denies numbness, tingling, weakness or focal weakness Skin: Denies rash Dr Mayes: Reports diabetes mellitus Except as documented, all other systems reviewed and negative [facility] Past Medical History Medical History (Updated 08/30/22 @ 08:34 by Hui Andrews MD) Anemia Depression High thyroid stimulating hormone (TSH) level Hypothyroidism Leukocytosis Long-term insulin use Type 1 diabetes mellitus with hyperosmolar hyperglycemic state (HHS) Surgical History Surgical History (Updated 08/30/22 @ 16:55 by Wily Christian MD) Hx of cholecystectomy S/P knee surgery Left knee Family History Family History Father Lung cancer metastatic to brain Lung cancer associated cerebellar ataxia Mother Acute myocardial infarction Cerebrovascular accident Social History Social History Social History: The patient has a significant other. He has a daughter. 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 He denies any alcohol or illicit drugs. He does not have a durable power environmental lawyer for healthcare. Code status full code Smoking packs per day: 0.5 Smoking cigarettes per day: 10.0 Years smoked: 30 Smoking pack-years: 15.00 Smoking status: Current every day smoker Tobacco type: cigarettes Second hand tobacco smoke exposure: Yes Alcohol intake: current Drinks per week: 4 Substance use: current [place]
[2022-08-30 17:23] LABS: Glucose Point of Care 251 mg/dl (65-105)
[2022-08-30] MEDS: SUCRALFATE SUSP 100 MG/ML 10 ML UDC 1000 MG PO (20:48)
[2022-08-30 20:58] LABS: Glucose Point of Care 51 mg/dl (65-105)
[2022-08-30 21:28] LABS: Glucose Point of Care 118 mg/dl (65-105)
[2022-08-31] VITALS (38 sets, daily range): BP systolic 127–155; BP diastolic 83–98; PULSE 64–89; RESP 14–24; TEMP 36.9–37.2; O2SAT 93–100
[2022-08-31 04:07] LABS: Basophils Percent Auto 0.1 % (0.2-1.2); Hematocrit 33.9 % (42.0-52.0); Hemoglobin 11.2 g/dL (14.0-18.0); Immature Granulocyte Absolute 0.12 K/mm3 (0.00-0.031); Immature Granulocyte Percent A 0.6 % (0-0.5); Lymphocytes Absolute Auto 2.49 K/mm3 (0.9-3.2); Lymphocytes Percent Auto 13.1 % (18.3-44.2); Mean Corpuscular Hemoglobin 30.5 pg (26-34); Mean Corpuscular Volume 92.4 fl (80-100); Mean Platelet Volume 10.3 fl (7.4-10.4); Monocytes Percent Auto 5.4 % (2.6-8.5); Neutrophils Absolute Auto 15.3 K/mm3 (1.3-6.7); Neutrophils Percent Auto 80.8 % (45.5-73.1); Platelet Count Result 211 k/mm3 (150-375); Red Blood Count 3.67 M/mm3 (4.6-6.20); Red Cell Distribution Width 14.2 % (11.5-14.5)
[2022-08-31 04:19] LABS: Alanine Aminotransferase 19 U/L (6-50); Albumin Level 3.1 g/dL (3.5-5.1); Alkaline Phosphatase 66 U/L (38-126); Anion Gap 3 mmol/L (8-16); Aspartate Amino Transferase 29 U/L (17-59); Bilirubin,Total 2.5 mg/dL (0.2-1.3); Blood Urea Nitrogen 16 mg/dL (9-20); Calcium 8.1 mg/dL (8.4-10.2); Carbon Dioxide 24 mmol/L (22-30); Chloride 106 mmol/L (98-107); Estimated CRCL calculation 119 ml/min; Estimated Glomerular Filt Rate > 60; Glucose 124 mg/dL (65-110); Lactic Acid Reflex 0.8 mmol/L (0.7-2.0); Magnesium 1.9 mg/dL (1.6-2.3); Potassium 3.8 mmol/L (3.4-5.0); Sodium 133 mmol/L (137-145)
[2022-08-31] MEDS: SUCRALFATE SUSP 100 MG/ML 10 ML UDC 1000 MG PO (06:19)
[2022-08-31] MEDS: LEVOTHYROXINE SODIUM 100 MCG TABLET PO (06:20)
[2022-08-31] MEDS: ACETAMINOPHEN 325 MG TABLET 650 MG PO (07:27)
--- NOTE | 2022-08-31 07:34 | PM.DS ---
DS: Admitting Diagnosis Discharge Date 08/31/22 Admitting Diagnosis dka DS: Discharge Diagnosis Discharge Diagnosis (1) DKA (diabetic ketoacidosis): Code(s): E11.10 - Type 2 diabetes mellitus with ketoacidosis without coma Status: Acute Assessment and Plan: Patient presented with nausea, vomiting. Has history of diabetes, was found to have elevated blood sugars in the ER, was given 2 L IV fluids, transferred to the medical floor he started having some agitation delirium and confusion along with increased blood sugars to 500, anion gap metabolic acidosis and was transferred to the ICU for insulin infusion. -patient received a total of 5 L of IV fluids between ER and ICU -continue insulin infusion per DKA protocol -continue maintenance IV fluids per DKA protocol (2) Severe sepsis: Code(s): A41.9 - Sepsis, unspecified organism; R65.20 - Severe sepsis without septic shock Status: Acute Assessment and Plan: Patient presented with severe sepsis lactic acid of 5.7, WBC count of 19.5, anion gap metabolic acidosis, fevers -08/29/2022 CT scan of the abdomen and pelvis: Showed mild Ashley intestinal and mesenteric edema may reflect a component of enteritis/colitis -patient started on Zosyn and vancomycin (08/30/2022) -08/30/2022: Obtain blood cultures -will trend lactic acid levels -blood pressures been stable so far, if hypotensive, will place a central line and start him on pressors (3) Encephalopathy: Code(s): G93.40 - Encephalopathy, unspecified Status: Acute Assessment and Plan: Encephalopathy could be multifactorial related to hyperglycemia, metabolic acidosis likely related to DKA and/or lactic acidosis secondary to infection -continue to monitor and treat the underlying cause (4) Hyperbilirubinemia: Code(s): E80.6 - Other disorders of bilirubin metabolism Status: Acute Assessment and Plan: Hyperbilirubinemia: Will obtain hepatitis panel and right upper quadrant ultrasound -LFTs are within normal limits -check alcohol level -urine drug screen was positive for cannabinoids (5) Electrolyte imbalance: Code(s): E87.8 - Other disorders of electrolyte and fluid balance, not elsewhere classified Status: Acute Assessment and Plan: Hyperkalemia with a potassium of 6.0, currently on insulin infusion, will recheck -if potassium remains elevated will treat (6) Hematemesis: Code(s): K92.0 - Hematemesis Status: Acute Assessment and Plan: Patient had some bright red blood present in his vomitus. Could be related to tear secondary to nausea, and vomiting -started on Protonix IV q.12 hours -GI has been consulted Plan DVT prophylaxis: SCDs, possible GI bleed Stress ulcer prophylaxis: Protonix IV q.12 hours Nutrition: NPO for now Code Status: Full code Critical Care Time Spent: 51 minutes Due to a high probability of clinically significant, life threatening deterioration, the patient required my highest level of preparedness to intervene emergently and I personally spent this critical care time directly and personally managing the patient. This critical care time included obtaining a history; examining the patient; pulse oximetry; ordering and review of studies; arranging urgent treatment with development of a management plan; evaluation of patient's response to treatment; frequent reassessment; and discussions with other providers. It was exclusive of separately billable procedures and treating other patients and teaching time. Please see Assessment and Plan section and the rest of the note for further information on patient assessment and treatment This dictation may have been done utilizing a voice recognition system. Attempts have been made to correct errors. However, there may be uncorrected grammatical, spelling, and recognitions errors present. DS: Summary Hospital Course Hospital Course: 47 year old male with past medical his
--- NOTE | 2022-08-31 07:35 | PC.NURSE ---
0710- Patient off monitor, informed patient that he is ICU status and the importance of continuous cardiac monitoring while in the ICU, notified ICU doctor and hospitalist.
--- NOTE | 2022-08-31 07:50 | WPDINTPN ---
Progress Note: A&P Assessment and Plan (1) DKA (diabetic ketoacidosis): Code(s): E11.10 - Type 2 diabetes mellitus with ketoacidosis without coma Status: Acute Assessment and Plan: Patient presented with nausea, vomiting. Has history of diabetes, was found to have elevated blood sugars in the ER, was given 2 L IV fluids, transferred to the medical floor he started having some agitation delirium and confusion along with increased blood sugars to 500, anion gap metabolic acidosis and was transferred to the ICU for insulin infusion. -patient received a total of 5 L of IV fluids between ER and ICU -patient was transition to long-acting insulin and sliding scale insulin yesterday on 08/30/2022 -hemoglobin A1c 6.8 this admission -continue diabetic diet (2) Severe sepsis: Code(s): A41.9 - Sepsis, unspecified organism; R65.20 - Severe sepsis without septic shock Status: Acute Assessment and Plan: Patient presented with severe sepsis lactic acid of 5.7, WBC count of 19.5, anion gap metabolic acidosis, fevers -08/29/2022 CT scan of the abdomen and pelvis: Showed mild Ashley intestinal and mesenteric edema may reflect a component of enteritis/colitis -patient started on Zosyn and vancomycin (08/30/2022) -08/30/2022: Obtain blood cultures -lactic acid has resolved -blood pressures have been stable (3) Encephalopathy: Code(s): G93.40 - Encephalopathy, unspecified Status: Acute Assessment and Plan: RESOLVED Encephalopathy could be multifactorial related to hyperglycemia, metabolic acidosis likely related to DKA and/or lactic acidosis secondary to infection -continue to monitor and treat the underlying cause (4) Hyperbilirubinemia: Code(s): E80.6 - Other disorders of bilirubin metabolism Status: Acute Assessment and Plan: Hyperbilirubinemia: -hepatitis panel was negative -08/30 RUQ ultrasound: With no etiology for hyperbilirubinemia -LFTs are within normal limits -alcohol levels within normal limits -urine drug screen was positive for cannabinoids (5) Electrolyte imbalance: Code(s): E87.8 - Other disorders of electrolyte and fluid balance, not elsewhere classified Status: Acute Assessment and Plan: Hyperkalemia has resolved, was likely related to acidosis secondary to DKA and lactic acidosis (6) Hematemesis: Code(s): K92.0 - Hematemesis Status: Acute Assessment and Plan: Patient had some bright red blood present in his vomitus. Could be related to tear secondary to nausea, and vomiting -started on Protonix IV q.12 hours -appreciate GI evaluation recommendation Plan DVT prophylaxis: SCDs, possible GI bleed Stress ulcer prophylaxis: Protonix IV q.12 hours Nutrition: Diabetic diet Code Status: Full code Critical Care Time Spent: 31 minutes Due to a high probability of clinically significant, life threatening deterioration, the patient required my highest level of preparedness to intervene emergently and I personally spent this critical care time directly and personally managing the patient. This critical care time included obtaining a history; examining the patient; pulse oximetry; ordering and review of studies; arranging urgent treatment with development of a management plan; evaluation of patient's response to treatment; frequent reassessment; and discussions with other providers. It was exclusive of separately billable procedures and treating other patients and teaching time. Please see Assessment and Plan section and the rest of the note for further information on patient assessment and treatment This dictation may have been done utilizing a voice recognition system. Attempts have been made to correct errors. However, there may be uncorrected grammatical, spelling, and recognitions errors present. Subjective Date/time seen: 08/31/22 07:50 Interval history: Reason for consult: DKA, hyperglycemia, severe sepsis, altered me
[2022-08-31 08:14] LABS: Glucose Point of Care 117 mg/dl (65-105)
[2022-08-31] MEDS: PANTOPRAZOLE SODIUM IV 40 MG VIAL IV PUSH (09:14)
[2022-08-31 10:21] LABS: Basophils Percent Auto 0.1 % (0.2-1.2); Hematocrit 35.2 % (42.0-52.0); Hemoglobin 11.8 g/dL (14.0-18.0); Immature Granulocyte Absolute 0.06 K/mm3 (0.00-0.031); Immature Granulocyte Percent A 0.4 % (0-0.5); Lymphocytes Absolute Auto 1.71 K/mm3 (0.9-3.2); Mean Corpuscular HGB Conc 33.5 g/dl (32-36); Mean Corpuscular Hemoglobin 30.8 pg (26-34); Mean Corpuscular Volume 91.9 fl (80-100); Mean Platelet Volume 10.1 fl (7.4-10.4); Monocytes Absolute Auto 0.8 K/mm3 (0.1-0.6); Monocytes Percent Auto 5.4 % (2.6-8.5); Neutrophils Absolute Auto 12.9 K/mm3 (1.3-6.7); Neutrophils Percent Auto 83.1 % (45.5-73.1); Platelet Count Result 231 k/mm3 (150-375); Red Blood Count 3.83 M/mm3 (4.6-6.20); Red Cell Distribution Width 14.1 % (11.5-14.5); White Blood Count 15.6 K/mm3 (4.5-10.0)
[2022-08-31 10:45] LABS: Alanine Aminotransferase 21 U/L (6-50); Albumin Level 3.4 g/dL (3.5-5.1); Alkaline Phosphatase 77 U/L (38-126); Anion Gap 4 mmol/L (8-16); Aspartate Amino Transferase 34 U/L (17-59); Bilirubin,Total 2.6 mg/dL (0.2-1.3); Blood Urea Nitrogen 14 mg/dL (9-20); Calcium 8.1 mg/dL (8.4-10.2); Carbon Dioxide 25 mmol/L (22-30); Chloride 102 mmol/L (98-107); Cholesterol 65 mg/dL (0-200); Estimated CRCL calculation 119 ml/min; Estimated Glomerular Filt Rate > 60; Glucose 202 mg/dL (65-110); HDL Direct 22 mg/dL; Potassium 3.8 mmol/L (3.4-5.0); Sodium 131 mmol/L (137-145); Triglycerides 57 mg/dL (<150)
[2022-08-31 10:56] LABS: LDL Cholesterol Direct 38 mg/dL
[2022-08-31 11:02] LABS: Procalcitonin 1.6 ng/mL
[2022-08-31 12:03] LABS: Glucose Point of Care 204 mg/dl (65-105)
[2022-08-31] MEDS: INSULIN ASPART (*BKC) 100 UNITS/ML SUB-Q (12:03)
--- NOTE | 2022-08-31 14:48 | WPDGIPROGNO ---
Progress Note: A&P Assessment and Plan (1) Intractable nausea and vomiting: Code(s): R11.2 - Nausea with vomiting, unspecified Status: Acute Assessment and Plan: resolved and now eating, he is going home will set up egd as outpatient (2) DKA (diabetic ketoacidosis): Code(s): E11.10 - Type 2 diabetes mellitus with ketoacidosis without coma Status: Acute Assessment and Plan: treated and resolved on insulin at home (3) Leukocytosis: Code(s): D72.829 - Elevated white blood cell count, unspecified Status: Acute (4) Colon cancer screening: Code(s): Z12.11 - Encounter for screening for malignant neoplasm of colon Status: Acute Assessment and Plan: never had one and he is ok to to have one as outpatient will set up Subjective Date/time seen: 08/31/22 14:48 Interval history: doing better and tolerating diet, he is going home today Review of Systems Review of Systems: All systems reviewed & are unremarkable except as noted in HPI and below Exam Const: General: comfortable and no acute distress HENMT: Face/Nose/Sinus: Normal nares present Eyes: General: appearance normal, both eyes and all related structures Neck: Neck: no JVD Resp: Auscultation: clear to auscultation bilaterally Cardio: Rate: regular rate Rhythm: regular rhythm GI: Inspection: non-distended GI Palp: Yes Soft to palpation and No Tenderness to palpation present (GI) Auscultation: normal bowel sounds Skin: General skin exam: normal color Neuro: General: gait normal Speech: normal speech Extrem: General: normal to inspection Psych: Mental Status: mental status grossly normal Objective Data Vital Signs Vital Signs: Vital Signs - 24 hr 08/30/22 16:00 08/30/22 15:00 08/30/22 15:01 Temperature Pulse Rate 89 80 Respiratory Rate 17 20 Blood Pressure 136/73 Pulse Oximetry 95 97 97 Oxygen Delivery Room Air 08/30/22 15:15 08/30/22 15:30 08/30/22 15:31 Temperature Pulse Rate 81 83 89 Respiratory Rate 22 H 22 H 23 H Blood Pressure 133/70 Pulse Oximetry 98 98 96 Oxygen Delivery 08/30/22 15:45 08/30/22 16:00 08/30/22 16:01 Temperature Pulse Rate 83 82 85 Respiratory Rate 21 H 21 H 17 Blood Pressure 144/79 H Pulse Oximetry 97 97 98 Oxygen Delivery 08/30/22 16:15 08/30/22 16:30 08/30/22 16:31 Temperature Pulse Rate 81 83 85 Respiratory Rate 28 H 28 H 28 H Blood Pressure 141/71 H Pulse Oximetry 98 97 96 Oxygen Delivery 08/30/22 18:00 08/30/22 16:45 08/30/22 16:53 Temperature Pulse Rate 93 90 84 Respiratory Rate 29 H 20 Blood Pressure 141/71 H Pulse Oximetry 96 Oxygen Delivery 08/30/22 17:00 08/30/22 17:08 08/30/22 17:15 Temperature Pulse Rate 92 88 78 Respiratory Rate 21 H 20 20 Blood Pressure 127/73 Pulse Oximetry 96 Oxygen Delivery 08/30/22 17:30 08/30/22 17:45 08/30/22 18:00 Temperature Pulse Rate 81 81 82 Respiratory Rate 24 H 25 H 24 H Blood Pressure 134/73 Pulse Oximetry 97 96 97 Oxygen Delivery 08/30/22 18:01 08/30/22 18:15 08/30/22 20:00 Temperature Pulse Rate 82 85 86 Respiratory Rate 24 H 23 H 23 H Blood Pressure Pulse Oximetry 97 95 95 Oxygen Delivery Room Air 08/30/22 20:00 08/30/22 20:00 08/30/22 22:00 Temperature 99.7 F H Pulse Rate 85 88 74 Respiratory Rate 22 H Blood Pressure 129/76 Pulse Oximetry 96 Oxygen Delivery 08/30/22 22:00 08/31/22 00:00 08/31/22 00:00 Temperature 99 F Pulse Rate 74 70 70 Respiratory Rate 25 H 20 Blood Pressure 147/78 H 140/94 H Pulse Oximetry 96 96 Oxygen Delivery 08/31/22 00:00 08/31/22 02:00 08/31/22 02:00 Temperature Pulse Rate 78 76 Respiratory Rate 24 H Blood Pressure 132/83 Pulse Oximetry 96 96 Oxygen Delivery Room Air 08/31/22 04:00 08/31/22 04:00 08/31/22 04:00 Temperature 98.5 F Pulse Rate 70 70 Respiratory Rate 20 Blood Pr
== END 2022-08-31 16:20 | disposition home or self-care (01) | DRG 637 ==
LOC: ANHED 20:06 → ANH3MEDSUR 20:33 → ANHICU 08-30 04:21
PROVIDERS: Internal Medicine; Admitting Provider Internal Medicine; Emergency Provider Emergency Medicine; Visit Provider Student in an Organized Health Care Education/Training Program
DX: E10.10 Type 1 diabetes mellitus with ketoacidosis without coma (principal); A41.9 Sepsis, unspecified organism; R65.20 Severe sepsis without septic shock; G93.49 Other encephalopathy; K92.0 Hematemesis; E80.6 Other disorders of bilirubin metabolism; E87.5 Hyperkalemia; F32.A Depression, unspecified; Z20.822 Contact with and (suspected) exposure to COVID-19; F17.210 Nicotine dependence, cigarettes, uncomplicated; Z96.41 Presence of insulin pump (external) (internal); Z79.899 Other long term (current) drug therapy; Z82.49 Family history of ischemic heart disease and other diseases of the circulatory system; Z82.3 Family history of stroke; Z80.1 Family history of malignant neoplasm of trachea, bronchus and lung; Z80.8 Family history of malignant neoplasm of other organs or systems
CPT/HCPCS: 36415; 36600; 71045; 74177; 76705; 80048; 80053; 80061; 80074; 80307; 81001; 82010; 82375; 82805; 82948; 83036; 83050; 83605; 83690; 83735; 84100; 84145; 84443; 85025; 85610; 85730; 87040; 87636; 96361; 96365; 96366; 96367; 96372; 96375; 96376; 99285; A9270; C9113; G0378; J1630; J1815; J2405; J2543; J2550; J3370; J3475; J3480; J7030; P9047; Q9967

== ENCOUNTER 2022-09-03 14:00 | Outpatient (CLI) | payer BC, SELFPAY ==
[2022-09-03 15:00] LABS: Basophils Percent Auto 0.4 % (0.2-1.2); Eosinophils Absolute Auto 0.3 K/mm3 (0-0.3); Eosinophils Percent Auto 3.6 % (0-4.4); Hematocrit 40.4 % (42.0-52.0); Hemoglobin 13.3 g/dL (14.0-18.0); Immature Granulocyte Absolute 0.02 K/mm3 (0.00-0.031); Immature Granulocyte Percent A 0.3 % (0-0.5); Lymphocytes Absolute Auto 1.52 K/mm3 (0.9-3.2); Lymphocytes Percent Auto 22.2 % (18.3-44.2); Mean Corpuscular HGB Conc 32.9 g/dl (32-36); Mean Corpuscular Hemoglobin 30.2 pg (26-34); Mean Corpuscular Volume 91.8 fl (80-100); Mean Platelet Volume 10.5 fl (7.4-10.4); Monocytes Absolute Auto 0.7 K/mm3 (0.1-0.6); Monocytes Percent Auto 10.8 % (2.6-8.5); Neutrophils Absolute Auto 4.3 K/mm3 (1.3-6.7); Neutrophils Percent Auto 62.7 % (45.5-73.1); Platelet Count Result 242 k/mm3 (150-375); Red Cell Distribution Width 13.5 % (11.5-14.5); White Blood Count 6.9 K/mm3 (4.5-10.0)
[2022-09-03 15:05] LABS: Alanine Aminotransferase 26 U/L (6-50); Albumin Level 3.6 g/dL (3.5-5.1); Alkaline Phosphatase 77 U/L (38-126); Anion Gap 3 mmol/L (8-16); Aspartate Amino Transferase 29 U/L (17-59); Blood Urea Nitrogen 9 mg/dL (9-20); Calcium 8.3 mg/dL (8.4-10.2); Carbon Dioxide 29 mmol/L (22-30); Chloride 106 mmol/L (98-107); Estimated Glomerular Filt Rate > 60; Glucose 118 mg/dL (65-110); Sodium 138 mmol/L (137-145)
== END 2022-09-03 14:01 | disposition home or self-care (01) ==
LOC: ANHLAB 14:02
PROVIDERS: Visit Provider Student in an Organized Health Care Education/Training Program
DX: D72.829 Elevated white blood cell count, unspecified (principal); E80.6 Other disorders of bilirubin metabolism
CPT/HCPCS: 36415; 80053; 85025

== ENCOUNTER 2022-10-02 18:54 | Emergency (ER) | payer BC, SELFPAY ==
[2022-10-02] VITALS (8 sets, daily range): BP systolic 124–150; BP diastolic 70–94; PULSE 72–98; RESP 18–28; TEMP 36.7–37.1; O2SAT 96–100
--- NOTE | ~2022-10-02 | CT_ITS ---
EXAMINATION: CT abdomen pelvis w con DATE: 10/03/2022 01:49 INDICATION: Abdomen pain. TECHNIQUE: Computed tomography (CT) of the abdomen and pelvis was performed with 100 cc Omnipaque 350 intravenous contrast. The dose-length product was 494.04 mGy-cm. Automated exposure control and iter ative reconstruction technique were employed. COMPARISON: CT dated 08/29/2022. FINDINGS: There is dependent atelectasis. Heart size normal. No significant pleural or pericardial ef fusion. Stable mild mesenteric edema. No significant free fluid. Nonobstructive bowel pattern. Status post cholecystectomy. There are calcified granulomas of the spleen. The pancreas, adrenal glands and kidneys are unremarkable. Status post cholecystectomy. No free air. No significant vascular abnormal ity. No lymphadenopathy. No hydronephrosis. Bladder is unremarkable. No abnormal pelvic masses or flu id collections. Mild lumbar spondylosis. There is a bone island in the proximal aspect of the right f emur. There is mild curvature of the spine. IMPRESSION: 1. No acute abdominal abnormality. 2: Subtle mild mesenteric edema, nonspecific. Reviewed, dictated and finalized at location A. MANAGER
[2022-10-02 19:19] LABS: Glucose Point of Care 306 mg/dl (65-105)
[2022-10-02] MEDS: SODIUM CHLORIDE 0.9% IV 1,000 ML 999 ML IV CONT ×2 (21:38→22:56)
[2022-10-02 21:54] LABS: Alanine Aminotransferase 26 U/L (6-50); Albumin Level 4.6 g/dL (3.5-5.1); Alkaline Phosphatase 135 U/L (38-126); Anion Gap 8 mmol/L (8-16); Aspartate Amino Transferase 34 U/L (17-59); Bilirubin,Total 1.9 mg/dL (0.2-1.3); Blood Urea Nitrogen 15 mg/dL (9-20); Carbon Dioxide 23 mmol/L (22-30); Chloride 101 mmol/L (98-107); Estimated CRCL calculation 134 ml/min; Estimated Glomerular Filt Rate > 60; Glucose 291 mg/dL (65-110); Magnesium 1.8 mg/dL (1.6-2.3); Phosphorus 2.8 mg/dL (2.5-4.5); Potassium 4.6 mmol/L (3.4-5.0); Sodium 132 mmol/L (137-145)
[2022-10-02 22:18] LABS: Beta-Hydroxybutyrate/Acetoacetate 1.85 mmol/L (0.02-0.27)
[2022-10-02] MEDS: ONDANSETRON INJ 4 MG/2 ML VIAL IV PUSH (22:56)
[2022-10-02 23:26] LABS: Glucose Point of Care 297 mg/dl (65-105)
[2022-10-02 23:27] LABS: Basophils Percent Auto 0.3 % (0.2-1.2); Hematocrit 45.4 % (42.0-52.0); Hemoglobin 15.2 g/dL (14.0-18.0); Immature Granulocyte Absolute 0.07 K/mm3 (0.00-0.031); Immature Granulocyte Percent A 0.5 % (0-0.5); Lymphocytes Absolute Auto 1.07 K/mm3 (0.9-3.2); Lymphocytes Percent Auto 8.4 % (18.3-44.2); Mean Corpuscular HGB Conc 33.5 g/dl (32-36); Mean Corpuscular Hemoglobin 30.5 pg (26-34); Mean Corpuscular Volume 91.2 fl (80-100); Monocytes Absolute Auto 0.6 K/mm3 (0.1-0.6); Monocytes Percent Auto 4.8 % (2.6-8.5); Platelet Count Result 285 k/mm3 (150-375); Red Blood Count 4.98 M/mm3 (4.6-6.20); Red Cell Distribution Width 13.8 % (11.5-14.5); White Blood Count 12.8 K/mm3 (4.5-10.0)
[2022-10-02 23:50] LABS: Glucose Point of Care 213 mg/dl (65-105)
[2022-10-03] VITALS (28 sets, daily range): BP systolic 111–158; BP diastolic 61–87; PULSE 76–110; RESP 11–26; O2SAT 93–100
[2022-10-03 00:15] LABS: Appearance Urine Clear (Clear); Bilirubin Urine 1+ (Negative); Blood Urine Trace-intact (Negative); Color Urine Yellow (Yellow); Glucose Urine UA 2+ mg/dL (Negative); Ketones Urine 3+ mg/dL (Negative); Leukocyte Esterase Ur Negative LEU/UL (Negative); Nitrate Urine Negative (Negative); Protein Urine Negative (Negative); Specific Grav Ur 1.025 (1.001-1.035); Urobilinogen Urine 0.2 mg/dL (<2.0); pH Urine 5.5 (5.0-9.0)
[2022-10-03 00:17] LABS: Mucus Urine Rare /lpf; RBC Urine 0-2 /hpf (0-2); WBC Urine 0-3 /hpf
--- NOTE | 2022-10-03 00:27 | ECG_ITS ---
Measurements Intervals [place] Rate: 96 P: 77 HI: 134 QRS: 70 QRSD: 98 T: 41 QT: 340 QTc: 431 Interpretive Statements SINUS RHYTHM MINIMAL VOLTAGE CRITERIA FOR LVH, CONSIDER NORMAL VARIANT [MEETS CRITERIA IN ONE OF: R(aVL), S(V1), R(V5), R(V5/V6)+S(V1)] NO PREVIOUS ECG AVAILABLE FOR COMPARISON Electronically Signed On 10-03-2022 12:54:23 FRONT DESK MONITOR by Val Miguel M.D.
--- NOTE | 2022-10-03 00:40 | PC.NURSE ---
Pt reports his blood sugar is going up on his dexcom. He also c/o nausea and is vomiting. Dr. Escalera notified.
[2022-10-03 00:47] LABS: Add Urine Microscopic? YES
[2022-10-03] MEDS: PROCHLORPERAZINE EDISYLATE 10 MG/2 ML VIAL IV PUSH (00:50)
[2022-10-03] MEDS: SODIUM CHLORIDE 0.9% IV 1,000 ML 999 ML IV CONT (00:52)
--- NOTE | 2022-10-03 01:54 | ED.GENADULT ---
HPI - General Adult General Chief complaint: Nausea/Vomiting/Diarrhea Stated complaint: vomiting Time Seen by Provider: 10/02/22 21:52 History of Present Illness HPI narrative: Is a 47-year-old gentleman who presents emergency department with chief complaint of nausea vomiting and elevated blood sugars. Patient has prior history of diabetes uses insulin pump and today notices blood sugars are running in the Related Data Allergies Allergy/AdvReac Type Severity Reaction Status Date / Time No Known Allergies Allergy Verified 10/02/22 19:10 [facility] Past Medical History Medical History (Updated 10/03/22 @ 04:35 by Alfonso Escalera MD) Anemia Colon cancer screening Depression High thyroid stimulating hormone (TSH) level Hypothyroidism Leukocytosis Long-term insulin use Type 1 diabetes mellitus with hyperosmolar hyperglycemic state (HHS) Surgical History Surgical History (Updated 08/30/22 @ 16:55 by Wily Christian MD) Hx of cholecystectomy S/P knee surgery Left knee Family History Family History Father Lung cancer metastatic to brain Lung cancer associated cerebellar ataxia Mother Acute myocardial infarction Cerebrovascular accident Social History Social History Social History: The patient has a significant other. He has a daughter. 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 He denies any alcohol or illicit drugs. He does not have a durable power trust and estates attorney for healthcare. Code status full code Smoking packs per day: 0.5 Smoking cigarettes per day: 10.0 Years smoked: 30 Smoking pack-years: 15.00 Smoking status: Current every day smoker Tobacco type: cigarettes Second hand tobacco smoke exposure: Yes Alcohol intake: current Drinks per week: 4 Substance use: current Substance use type: marijuana Other substance usage details: occasional Last use: 3 weeks ago Lack of Transportation: YES Lack of Food: Often True Current Housing: I Have Housing Concerned About Future Housing: YES Difficulty Paying Gas/Electric Bills: YES Difficulty Paying for Meds: YES Currently Unemployed: No Education: Associate Degree Difficulty w/ Childcare or Family Care: No Occupation/Education: occupation Additional occupation/education comments: Construction Spiritual care concerns: Yes Course Vital Signs Vital signs: Vital Signs Temperature 36.7 C 10/02/22 19:10 Pulse Rate 72 10/02/22 19:10 Respiratory Rate 18 10/02/22 19:10 Blood Pressure 150/92 H 10/02/22 19:10 Pulse Oximetry 96 10/02/22 19:10 Oxygen Delivery Room Air 10/02/22 19:10 Temperature 37.1 C 10/02/22 22:57 Pulse Rate 106 H 10/03/22 02:40 Respiratory Rate 16 10/03/22 02:40 Blood Pressure 129/76 10/03/22 02:40 Pulse Oximetry 99 10/03/22 02:40 Oxygen Delivery Room Air 10/02/22 19:10 Medical Decision Making MDM Narrative Medical decision making narrative: Patient has prior history of diabetes and blood sugar was running significantly elevated. Laboratory studies were obtained patient did have an elevated beta hydroxybutyrate but did not have an anion gap and had a normal CO2. The patient's blood sugar has come down after receiving IV fluids. Nausea was controlled in the ER CT scan of the abdomen pelvis showed no evidence of focal finding. Vital Signs Vital Signs: Vital Signs Temperature 36.7 C 10/02/22 19:10 Pulse Rate 72 10/02/22 19:10 Respiratory Rate 18 10/02/22 19:10 Blood Pressure 150/92 H 10/02/22 19:10 Pulse Oximetry 96 10/02/22 19:10 Oxygen Delivery Room Air 10/02/22 19:10 Temperature 37.1 C 10/02/22 22:57 Pulse Rate 106 H 10/03/22 02:40 Respiratory Rate 16 10/03/22 02:40 Blood Pressure 129/76 10/03/22 02:40 Pulse Oximetry 99 10/03/22 02:40 Ox
[2022-10-03 03:01] LABS: Glucose Point of Care 231 mg/dl (65-105)
[2022-10-03 03:01] LABS: Glucose Point of Care 250 mg/dl (65-105)
== END 2022-10-03 05:20 | disposition home or self-care (01) ==
PROVIDERS: Emergency Provider Emergency Medicine; PCP Family Medicine
DX: E10.65 Type 1 diabetes mellitus with hyperglycemia (principal); R11.2 Nausea with vomiting, unspecified; E03.9 Hypothyroidism, unspecified; Z86.2 Personal history of diseases of the blood and blood-forming organs and certain disorders involving the immune mechanism; F17.210 Nicotine dependence, cigarettes, uncomplicated; Z79.4 Long term (current) use of insulin
CPT/HCPCS: 36415; 74177; 80053; 81001; 82010; 82948; 83735; 84100; 85025; 93005; 96361; 96374; 96375; 99284; J0780; J2405; J7030; Q9967

== ENCOUNTER 2022-11-20 00:27 | Day surgery (SDC) | payer BC, SELFPAY ==
[2022-10-10 14:38] VITALS: BMI 25.0
--- NOTE | 2022-11-07 13:34 | PC.NURSE ---
Patient states no changes in health history or medications since last interview. Updated to new arrival date and time.
[2022-11-20 06:26] VITALS: BP 126/84; PULSE 70; RESP 18; TEMP 36.6; O2SAT 96
--- NOTE | 2022-11-20 06:29 | SUR.PREOP ---
PT HAS INSULIN PUMP AND CONTINUOUS MONITORING, BS REPORTED 203
[2022-11-20] MEDS: LACTATED RINGERS 1,000 ML 150 ML IV CONT (06:36)
--- NOTE | 2022-11-20 07:25 | WPDANESEPPF ---
Anes - Initial Pre Proc Eval Procedure: Operation Date: 11/20/22 07:30 Proposed Procedures p Esophagogastroduodenoscopy & Colonoscopy - Wily Christian MD Date/Time: 11/20/22 07:25 Surgeon: Wily Christian MD Pre Op Diagnosis: Nause & Vomit, Neoplasm Screen Patient Data Age: 47 Gender: M Height: 1.91 m Weight: 91.4 kg Last Vital Signs Temp 97.8 F 11/20/22 06:26 Pulse 70 11/20/22 06:26 Resp 18 11/20/22 06:26 BP 126/84 11/20/22 06:26 Pulse Ox 96 11/20/22 06:26 O2 Del Method Room Air 11/20/22 06:26 Allergies Allergy/AdvReac Type Severity Reaction Status Date / Time No Known Allergies Allergy Verified 11/20/22 06:23 Home Medications Medication Instructions Recorded Confirmed Type blood sugar diagnostic (Contour #400 ea 06/13/20 11/20/22 Rx Next Test Strips) blood sugar diagnostic (Accu-Chek #400 ea 11/25/20 11/20/22 Rx Guide test strips) flash glucose sensor (FreeStyle #6 ea 05/03/22 11/20/22 Rx Nicolás 2 Sensor kit) insulin lispro 100 unit/mL See Rx Instructions .Route 06/25/22 11/20/22 Rx subcutaneous solution (Humalog .COMPLEX #80 mL U-100 Insulin) glucagon 1 mg solution for 1 mg subcut ONCE PRN hypoglycemia 07/26/22 11/20/22 Rx injection (Glucagon Emergency Kit) #1 ea levothyroxine 100 mcg tablet 100 mcg PO DAILY #90 tabs 07/26/22 11/20/22 Rx Patient hx anesthesia problems: none Family hx anesthesia problems: none Results Review: All pre-operative results and documents have been reviewed as part of the pre-operative evaluation. [facility] Past Medical History Medical History (Updated 10/28/22 @ 09:37 by Brando Amos MD) Anemia Colon cancer screening Depression High thyroid stimulating hormone (TSH) level Hypothyroidism Leukocytosis Long-term insulin use Type 1 diabetes mellitus with hyperosmolar hyperglycemic state (HHS) Surgical History Surgical History (Updated 08/30/22 @ 16:55 by Wily Christian MD) Hx of cholecystectomy S/P knee surgery Left knee Family History Family History Father Lung cancer metastatic to brain Lung cancer associated cerebellar ataxia Mother Acute myocardial infarction Cerebrovascular accident Social History Social History Social History: The patient has a significant other. He has a daughter. 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 He denies any alcohol or illicit drugs. He does not have a durable power regulatory attorney for healthcare. Code status full code Smoking packs per day: 0.5 Smoking cigarettes per day: 10.0 Years smoked: 35 Smoking pack-years: 17.50 Smoking status: Current every day smoker Tobacco type: cigarettes Second hand tobacco smoke exposure: Yes Alcohol intake: current Drinks per week: 4 Alcohol use details: rarely - 3 shots/month Substance use: current Substance use type: marijuana Other substance usage details: daily Last use: 3 weeks ago Lack of Transportation: YES Lack of Food: Often True Current Housing: I Have Housing Concerned About Future Housing: YES Difficulty Paying Gas/Electric Bills: YES Difficulty Paying for Meds: YES Currently Unemployed: No Education: Associate Degree Difficulty w/ Childcare or Family Care: No Living arrangements: with friend(s) Occupation/Education: occupation Additional occupation/education comments: Construction Spiritual care concerns: No Anes - Eval Final PreProcedure Day of Procedure 11/20/22 07:25 Patient weight: normal Heart: regular rate and rhythm Lungs: clear to auscultation Airway: Mallampati scale class II Neurological: alert and oriented Last oral intake: >/= 8 hours ASA classification: III Emergent: no Anesthetic plan: proceed Anesthesia type and monitoring: general GIVS and s
--- NOTE | 2022-11-20 07:38 | PM.HPGS ---
History of Present Illness History of Present Illness Consent: Risks, benefits, and alternatives have been discussed and questions answered. Patient agrees to proceed with procedure. Chief complaint: Nause & Vomit, Neoplasm Screen Narrative: Jesus Galaviz is a 47 year old male with dm and previous hospitalization with dka and n/v, doing ok now. Never had scopes Review of Systems Constitutional: Constitutional: Denies headache(s) and Denies weakness Eyes: Eyes: Denies blurry vision ENT: Reports Normal hearing present, Denies headache(s) and Denies neck pain Cardiovascular: Cardiovascular: Denies chest pain and Denies dyspnea Respiratory: Respiratory: Denies dyspnea Gastrointestinal: Gastrointestinal: Reports no additional gastrointestinal complaints Genitourinary: Genitourinary: Denies dysuria Musculoskeletal: Musculoskeletal: Denies neck pain Integumentary/Breasts: Skin/Breast: Denies dry skin Neurologic: Reports Normal hearing present, Denies headache(s) and Denies weakness Psychiatric: Psychiatric: Denies anxiety Endocrine: Endocrine: Denies change in body appearance Hematologic/Lymphatic: Hematologic/Lymphatic: Denies easy bleeding Allergic/Immunologic: Allergic/Immunologic: Denies urticaria PMFSH Past Medical History Medical History (Updated 11/20/22 @ 07:39 by Wily Christian MD) Anemia Colon cancer screening Depression High thyroid stimulating hormone (TSH) level Hypothyroidism Leukocytosis Long-term insulin use Nausea Type 1 diabetes mellitus with hyperosmolar hyperglycemic state (HHS) Surgical History Surgical History (Updated 08/30/22 @ 16:55 by Wily Christian MD) Hx of cholecystectomy S/P knee surgery Left knee Family History Family History Father Lung cancer metastatic to brain Lung cancer associated cerebellar ataxia Mother Acute myocardial infarction Cerebrovascular accident Social History Social History Social History: The patient has a significant other. He has a daughter. 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 He denies any alcohol or illicit drugs. He does not have a durable power attorney recruiter for healthcare. Code status full code Smoking packs per day: 0.5 Smoking cigarettes per day: 10.0 Years smoked: 35 Smoking pack-years: 17.50 Smoking status: Current every day smoker Tobacco type: cigarettes Second hand tobacco smoke exposure: Yes Alcohol intake: current Drinks per week: 4 Alcohol use details: rarely - 3 shots/month Substance use: current Substance use type: marijuana Other substance usage details: daily Last use: 3 weeks ago Lack of Transportation: YES Lack of Food: Often True Current Housing: I Have Housing Concerned About Future Housing: YES Difficulty Paying Gas/Electric Bills: YES Difficulty Paying for Meds: YES Currently Unemployed: No Education: Associate Degree Difficulty w/ Childcare or Family Care: No Living arrangements: with friend(s) Occupation/Education: occupation Additional occupation/education comments: Construction Spiritual care concerns: No Meds Home Medications and Allergies Home Medications Medication Instructions Recorded Confirmed Type blood sugar diagnostic (Contour #400 ea 06/13/20 11/20/22 Rx Next Test Strips) blood sugar diagnostic (Accu-Chek #400 ea 11/25/20 11/20/22 Rx Guide test strips) flash glucose sensor (FreeStyle #6 ea 05/03/22 11/20/22 Rx Nicolás 2 Sensor kit) insulin lispro 100 unit/mL See Rx Instructions .Route 06/25/22 11/20/22 Rx subcutaneous solution (Humalog .COMPLEX #80 mL U-100 Insulin) glucagon 1 mg solution for 1 mg subcut ONCE PRN hypoglycemia 07/26/22 11/20/22 Rx injection (Glucagon Emergency Kit) #1 ea levothyroxine 100 mcg tablet 100 mcg
--- NOTE | 2022-11-20 08:01 | SUR.OPER ---
EGD: [id number] COLON: [id number]
[2022-11-20 08:04] VITALS: BP 97/65; PULSE 71; RESP 21; O2SAT 97
[2022-11-20 08:14] VITALS: BP 106/71; PULSE 61; RESP 20; O2SAT 98
[2022-11-20 08:24] VITALS: BP 113/70; PULSE 62; RESP 20; O2SAT 97
--- NOTE | 2022-11-20 08:32 | SUR.PHASEII ---
BS 239 per pt dexacom.
== END 2022-11-20 08:40 | disposition home or self-care (01) ==
PROVIDERS: PCP Family Medicine; Visit Provider Internal Medicine Gastroenterology
PROC: 0DJ08ZZ Inspection of Upper Intestinal Tract, Via Natural or Artificial Opening Endoscopic (ICD-10-PCS; CPT 43235; principal; 2022-11-20 07:30)
DX: Z12.11 Encounter for screening for malignant neoplasm of colon (principal); K64.8 Other hemorrhoids; R11.0 Nausea; E10.9 Type 1 diabetes mellitus without complications; E03.9 Hypothyroidism, unspecified; Z79.4 Long term (current) use of insulin; F17.210 Nicotine dependence, cigarettes, uncomplicated; F12.90 Cannabis use, unspecified, uncomplicated
CPT/HCPCS: 45378; 43239; 88305; J2704; J7120

== ENCOUNTER 2022-12-21 07:28 | Outpatient (CLI) | payer BC, SELFPAY ==
[2022-12-21 18:07] LABS: Cholesterol 121 mg/dL (0-200); HDL Direct 29 mg/dL; Triglycerides 41 mg/dL (<150)
[2022-12-21 18:09] LABS: Alanine Aminotransferase 21 U/L (6-50); Alkaline Phosphatase 85 U/L (38-126); Anion Gap 3 mmol/L (8-16); Aspartate Amino Transferase 82 U/L (17-59); Bilirubin,Total 1.1 mg/dL (0.2-1.3); Blood Urea Nitrogen 14 mg/dL (9-20); Calcium 8.8 mg/dL (8.4-10.2); Carbon Dioxide 31 mmol/L (22-30); Chloride 106 mmol/L (98-107); Estimated Glomerular Filt Rate > 60; Glucose 122 mg/dL (65-110); Potassium 4.2 mmol/L (3.4-5.0); Sodium 140 mmol/L (137-145)
[2022-12-21 18:18] LABS: LDL Cholesterol Direct 71 mg/dL
[2022-12-21 18:22] LABS: Free T4 Free Thyroxine 0.87 ng/mL (0.78-2.19)
[2022-12-21 18:43] LABS: Creatinine Urine 165.3 mg/dL
[2022-12-21 21:14] LABS: Microalbumin Urine Random 6.6 mg/L (0-16.7)
[2022-12-26 13:32] LABS: Gliadin AB, IgG 54.9 U/mL (<15.0); TTG IGA AB >250.0 U/mL (<15.0)
== END 2022-12-21 07:29 | disposition home or self-care (01) ==
PROVIDERS: Nurse Practitioner Family; PCP Family Medicine; Referring Provider Nurse Practitioner; Visit Provider Internal Medicine Endocrinology, Diabetes & Metabolism
DX: Z00.00 Encounter for general adult medical examination without abnormal findings (principal); E10.649 Type 1 diabetes mellitus with hypoglycemia without coma; E87.1 Hypo-osmolality and hyponatremia; R85.7 Abnormal histological findings in specimens from digestive organs and abdominal cavity; R79.89 Other specified abnormal findings of blood chemistry
CPT/HCPCS: 36415; 80053; 80061; 82043; 84439; 84443; 86255; 86364

== ENCOUNTER 2023-01-08 16:26 | Outpatient (CLI) | payer BC, SELFPAY ==
[2023-01-08 18:14] LABS: Prothrombin Time 13.5 Seconds (11.1-14.7)
[2023-01-08 19:24] LABS: Folic Acid 6.4 ng/mL (2.76->20); Iron 86 ug/dL (49-181)
[2023-01-08 19:25] LABS: Percent Iron Saturation 28 % (20-50)
[2023-01-15 05:23] LABS: Vitamin D 1,25 (OH)2 Total 43 pg/mL (18-72); Vitamin D2 1,25 (OH)2 <8 pg/mL; Vitamin D3 1,25 (OH)2 43 pg/mL
== END 2023-01-08 16:27 | disposition home or self-care (01) ==
LOC: ANHLAB 16:28
PROVIDERS: PCP Family Medicine; Visit Provider Nurse Practitioner
DX: K90.0 Celiac disease (principal)
CPT/HCPCS: 36415; 82607; 82652; 82728; 82746; 83540; 83550; 84446; 84590; 85610

== ENCOUNTER 2023-03-18 20:32 | Observation (INO) | payer BC, SELFPAY ==
[2023-03-18] VITALS (8 sets, daily range): BP systolic 140–153; BP diastolic 66–89; PULSE 70–108; RESP 14–25; TEMP 36.7–37.2; O2SAT 97–98
--- NOTE | ~2023-03-18 | CT_ITS ---
EXAMINATION: CT abdomen pelvis w con DATE: 03/19/2023 08:59 INDICATION: Abdominal pain TECHNIQUE: Computed tomography (CT) of the abdomen and pelvis was performed with 100 mL Omnipaque-350 intravenous contrast. Automated exposure control and iterative reconstruction technique were employe d. The dose-length product was 540.63 mGy-cm. COMPARISON: 10/03/2022 FINDINGS: Mild dependent atelectasis in the bilateral lower lobes. Suggestion of mild emphysema at the lung bas es however specificity is limited by small amount of respiratory motion. Heart size is normal. No per icardial or pleural effusion. Cholecystectomy clips the gallbladder fossa. A few small splenic calcif ications consistent with old granulomatous disease. Liver, pancreas, bilateral adrenal glands and kid neys are normal. No bowel obstruction. Normal appendix. Bladder is normal. No free intraperitoneal ga s or fluid. Small amount of subcutaneous gas to the left of the umbilicus likely related to recent florez bcutaneous injection. No pathologically enlarged abdominal or pelvic lymphadenopathy. Mild lower thor acic and moderate lumbar spondylosis. IMPRESSION: 1. No acute intra-abdominal/pelvic process. Reviewed, dictated and finalized at location L.
--- NOTE | ~2023-03-18 | XR_ITS ---
Portable chest x-ray Comparison: 08/30/2022 Clinical History: Nausea and vomiting Findings: Lungs are clear, without focal consolidation or pleural effusion. Cardiomediastinal silho uette is stable. Bones and soft tissues are unremarkable. Impression: Clear lungs. Reviewed, dictated and finalized at location . Impression: Clear lungs.
[2023-03-18 21:08] LABS: Glucose Point of Care 200 mg/dl (65-105)
[2023-03-18 21:16] LABS: Basophils Percent Auto 0.2 % (0.2-1.2); Eosinophils Percent Auto 0.1 % (0-4.4); Hematocrit 44.4 % (42.0-52.0); Hemoglobin 14.9 g/dL (14.0-18.0); Immature Granulocyte Absolute 0.03 K/mm3 (0.00-0.031); Immature Granulocyte Percent A 0.4 % (0-0.5); Lymphocytes Absolute Auto 1.21 K/mm3 (0.9-3.2); Lymphocytes Percent Auto 15.1 % (18.3-44.2); Mean Corpuscular HGB Conc 33.6 g/dl (32-36); Mean Corpuscular Hemoglobin 30.7 pg (26-34); Mean Corpuscular Volume 91.5 fl (80-100); Mean Platelet Volume 9.6 fl (7.4-10.4); Monocytes Absolute Auto 0.6 K/mm3 (0.1-0.6); Monocytes Percent Auto 6.9 % (2.6-8.5); Neutrophils Absolute Auto 6.2 K/mm3 (1.3-6.7); Neutrophils Percent Auto 77.3 % (45.5-73.1); Platelet Count Result 299 k/mm3 (150-375); Red Blood Count 4.85 M/mm3 (4.6-6.20); Red Cell Distribution Width 13.4 % (11.5-14.5)
[2023-03-18 21:25] LABS: Alanine Aminotransferase 24 U/L (6-50); Albumin Level 4.2 g/dL (3.5-5.1); Alkaline Phosphatase 137 U/L (38-126); Anion Gap 11 mmol/L (8-16); Aspartate Amino Transferase 34 U/L (17-59); Bilirubin,Total 2.8 mg/dL (0.2-1.3); Blood Urea Nitrogen 12 mg/dL (9-20); Calcium 8.8 mg/dL (8.4-10.2); Carbon Dioxide 20 mmol/L (22-30); Chloride 105 mmol/L (98-107); Estimated CRCL calculation 134 ml/min; Estimated Glomerular Filt Rate > 60; Glucose 220 mg/dL (65-110); Lipase 56 U/L (23-300); Potassium 4.5 mmol/L (3.4-5.0); Sodium 136 mmol/L (137-145)
[2023-03-18 22:43] LABS: Appearance Urine Clear (Clear); Bacteria Urine None Seen /hpf; Bilirubin Urine Negative (Negative); Blood Urine Negative (Negative); Color Urine Yellow (Yellow); Glucose Urine UA 3+ mg/dL (Negative); Ketones Urine 2+ mg/dL (Negative); Leukocyte Esterase Ur Negative LEU/UL (Negative); Nitrate Urine Negative (Negative); Non Pathogenic Casts 0-2; Protein Urine Trace mg/dL (Negative); RBC Urine 0-2 /hpf (0-2); Specific Grav Ur 1.029 (1.001-1.035); Squamous Epithelial Cell Urine None seen /hpf (Few); WBC Urine 0-5 /hpf; pH Urine 5.5 (5.0-9.0)
[2023-03-18 22:54] LABS: Add Urine Microscopic? YES
--- NOTE | 2023-03-18 23:16 | PC.NURSE ---
pt care given to SAMMY Manzo. all questions answered
[2023-03-18] MEDS: SODIUM CHLORIDE 0.9% IV 1,000 ML 999 ML IV CONT (23:19)
[2023-03-18] MEDS: PROCHLORPERAZINE EDISYLATE 10 MG/2 ML VIAL IV PUSH (23:19)
[2023-03-18 23:28] LABS: Fractional Inspired Oxygen 21 %; HCO3 VBG 21.3 mEq/l (24.0-30.0); PO2 VBG 84.9 mmHg (35.0-45.0)
[2023-03-18 23:29] LABS: PCO2 VBG 28.6 mmHg (42.0-48.0); pH VBG 7.489 (7.300-7.400)
[2023-03-18 23:30] LABS: Beta-Hydroxybutyrate/Acetoacetate 1.45 mmol/L (0.02-0.27)
[2023-03-19] VITALS (10 sets, daily range): BP systolic 132–137; BP diastolic 56–76; PULSE 102–115; RESP 14–27; TEMP 37.5–37.7; O2SAT 95–97; BMI 25.4
[2023-03-19 00:37] LABS: Glucose Point of Care 253 mg/dl (65-105)
[2023-03-19] MEDS: SODIUM CHLORIDE 0.9% IV 1,000 ML 999 ML IV CONT ×2 (00:51)
[2023-03-19] MEDS: PROCHLORPERAZINE EDISYLATE 10 MG/2 ML VIAL IV PUSH (00:51)
--- NOTE | 2023-03-19 01:18 | ED.GENADULT ---
HPI - General Adult General Chief complaint: Nausea/Vomiting/Diarrhea Stated complaint: nausea, sugars staying high Time Seen by Provider: 03/18/23 22:46 History of Present Illness HPI narrative: Patient is a 47-year-old gentleman who presents emerged part with chief complaint of hyperglycemia nausea vomiting. Patient reports he has history of insulin-dependent diabetes wears an insulin pump and noticed that his blood sugars were running high and the patient's had multiple episodes of nausea and vomiting. The patient reports that unable to keep fluids down. Related Data Allergies Allergy/AdvReac Type Severity Reaction Status Date / Time No Known Allergies Allergy Verified 02/27/23 09:25 Review of Systems Review of Systems: A 10 system review of systems was completed on the patient and is negative except for what is stated in the HPI. Nursing and ancillary documentation was reviewed. [facility] [place] Past Medical History Medical History Abnormal small bowel biopsy Anemia B12 deficiency Celiac disease Depression High thyroid stimulating hormone (TSH) level Hypothyroidism Leukocytosis Long-term insulin use Nausea Type 1 diabetes mellitus with hyperosmolar hyperglycemic state (HHS) Surgical History Surgical History Hx of cholecystectomy S/P knee surgery Left knee Family History Family History Father Lung cancer metastatic to brain Lung cancer associated cerebellar ataxia Mother Acute myocardial infarction Cerebrovascular accident Social History Social History Social History: The patient has a significant other. He has a daughter. 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 He denies any alcohol or illicit drugs. He does not have a durable power prosecuting attorney for healthcare. (This Note was in this Mr. Galaviz's chart before he became a patient of Dr. Amos's 11/2022) Code status full code Smoking packs per day: 0.25 Smoking cigarettes per day: 5.0 Years smoked: 35 Smoking pack-years: 8.75 Smoking status: Current every day smoker Tobacco type: cigarettes Second hand tobacco smoke exposure: Yes Alcohol intake: current Drinks per week: 4 Alcohol use details: Rumble Lora, rarely 2-3 shots per month Substance use: current Substance use type: marijuana Other substance usage details: daily, going to be quitting Lack of Transportation: YES Lack of Food: Often True Current Housing: I Have Housing Concerned About Future Housing: YES Difficulty Paying Gas/Electric Bills: YES Difficulty Paying for Meds: YES Currently Unemployed: No Education: Associate Degree Difficulty w/ Childcare or Family Care: No Living arrangements: with friend(s) Occupation/Education: occupation Additional occupation/education comments: Construction Gender identity (if verbalized by the patient): Male Spiritual care concerns: No Agree to blood products: Yes Exam Narrative: GENERAL: Ill-appearing, well-nourished, and in acute distress while actively vomiting. HEAD: Normocephalic, atraumatic. EYES: PERRLA and EOMI. ENT: Nares clear, no rhinorrhea or epistaxis. Mucous membranes moist. NECK: Supple. CHEST: Clear to auscultation. No respiratory distress. HEART: Regular rate and rhythm. No murmur heard. Normal peripheral pulses. ABDOMEN: Soft, nontender, nondistended, normal active bowel sounds. EXTREMITIES: Normal range of motion. No edema. SKIN: Warm, dry, no rash. NEURO: No focal deficits. Alert and oriented x3. PSYCH: Normal mood and affect. Course Vital Signs Vital signs: Vital Signs Temperature 36.7 C 03/18/23 21:01 Pulse Rate 71
--- NOTE | 2023-03-19 02:05 | PM.IMHP ---
H&P: HPI History of Present Illness Date/Time: 03/19/23 02:05 Chief Complaint: N/V Narrative: This is a 47-year-old man with past a medical history significant for type 1 diabetes mellitus, patient UA uses insulin pump, to walk with dependence, patient is smokes 1 pack of cigarettes daily. Patient presents to the emergency room did to nausea vomiting from the day before to with abdominal pain, denies any fevers, rigors, chills, cough, sputum production. Preliminary workup was significant for blood glucose of 250, bed high-dose ability rate of 1.5. Patient denies any hematemesis, coffee-ground emesis, melena. Aggressive fluids received in the emergency room. Patient is being placed in observation for for the evaluation management and treatment. Review of Systems Review of Systems: Nausea, vomiting, abdominal pain Constitutional: Constitutional: Denies chills, Denies fever(s) and Denies night sweats Eyes: Eyes: Denies change in vision ENT: Denies dysphagia, Denies vertigo, Denies dizziness and Denies odynophagia Cardiovascular: Cardiovascular: Denies chest pain at rest, Denies leg edema, Denies radiating jaw, neck or arm pain and Denies palpitations Respiratory: Respiratory: Denies cough and Denies excessive phlegm production Gastrointestinal: Gastrointestinal: Reports abdominal pain, Denies melena, Denies hematochezia, Denies coffee ground emesis, Denies diarrhea, Denies loose stools, Reports nausea, Reports vomiting and Reports hematemesis Genitourinary: Genitourinary: Denies dysuria Musculoskeletal: Musculoskeletal: Denies myalgias Integumentary/Breasts: Skin/Breast: Denies rash Neurologic: Denies vertigo, Denies dizziness, Denies focal weakness and Denies weakness Psychiatric: Psychiatric: Reports no additional psychiatric complaints and Reports as per HPI Endocrine: Endocrine: Denies cold intolerance, Denies heat intolerance, Denies polyphagia, Denies polydipsia, Denies polyuria and Denies palpitations Hematologic/Lymphatic: Hematologic/Lymphatic: Reports no additional hematologic/lymphatic complaints and Reports as per HPI Allergic/Immunologic: Allergic/Immunologic: Reports no additional allergic/immunologic complaints and Reports as per HPI [facility] Past Medical History Medical History Abnormal small bowel biopsy Anemia B12 deficiency Celiac disease Depression High thyroid stimulating hormone (TSH) level Hypothyroidism Leukocytosis Long-term insulin use Nausea Type 1 diabetes mellitus with hyperosmolar hyperglycemic state (HHS) Surgical History Surgical History Hx of cholecystectomy S/P knee surgery Left knee Family History Family History Father Lung cancer metastatic to brain Lung cancer associated cerebellar ataxia Mother Acute myocardial infarction Cerebrovascular accident Social History Social History Social History: The patient has a significant other. He has a daughter. 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 He denies any alcohol or illicit drugs. He does not have a durable power employment attorney for healthcare. (This Note was in this Mr. Galaviz's chart before he became a patient of Dr. Amos's 11/2022) Code status full code Smoking packs per day: 0.5 Smoking cigarettes per day: 10.0 Years smoked: 35 Smoking pack-years: 17.50 Smoking status: Current every day smoker Tobacco type: cigarettes Second hand tobacco smoke exposure: Yes Alcohol intake: current Drinks per week: 4 Alcohol use details: Rumble Lora, rarely 2-3 shots per month Substance use: current Substance use type: marijuana Other substance usage details: daily, going to be q
--- NOTE | 2023-03-19 02:28 | ADMGEN ---
This patient, Jesus Galaviz, was admitted to 3 [facility] Surg Room 307-02 at 0225. Patient/family oriented to hospital policies and general routines including ID bracelet, bed and alarms, visiting hours, pain management, procedures, bathroom and other care routines, personal items, smoking policy, room service/diet, and visiting hours. Information on how to activate the Rapid Response Team has been discussed. Patient/Family are encouraged to report perceived risks to care and to ask questions if they do not understand what they are told or what they should do.
[2023-03-19 02:32] LABS: Glucose Point of Care 245 mg/dl (65-105)
[2023-03-19] MEDS: SODIUM CHLORIDE 0.9% IV 1,000 ML 125 ML IV CONT (02:35)
[2023-03-19] MEDS: INSULIN GLARGINE (*BKC) 100 UNITS/ML 28 UNITS SUB-Q (03:48)
[2023-03-19 06:32] LABS: Basophils Percent Auto 0.1 % (0.2-1.2); Hematocrit 39.6 % (42.0-52.0); Immature Granulocyte Absolute 0.05 K/mm3 (0.00-0.031); Immature Granulocyte Percent A 0.4 % (0-0.5); Lymphocytes Absolute Auto 1.32 K/mm3 (0.9-3.2); Mean Corpuscular HGB Conc 32.8 g/dl (32-36); Mean Corpuscular Hemoglobin 30.5 pg (26-34); Mean Platelet Volume 10.2 fl (7.4-10.4); Monocytes Absolute Auto 0.7 K/mm3 (0.1-0.6); Monocytes Percent Auto 4.9 % (2.6-8.5); Neutrophils Absolute Auto 11.1 K/mm3 (1.3-6.7); Neutrophils Percent Auto 84.6 % (45.5-73.1); Platelet Count Result 248 k/mm3 (150-375); Red Blood Count 4.26 M/mm3 (4.6-6.20); Red Cell Distribution Width 13.5 % (11.5-14.5); White Blood Count 13.1 K/mm3 (4.5-10.0)
[2023-03-19] MEDS: LEVOTHYROXINE SODIUM 112 MCG TABLET PO (06:34)
[2023-03-19 06:47] LABS: Anion Gap 8 mmol/L (8-16); Blood Urea Nitrogen 13 mg/dL (9-20); Calcium 7.8 mg/dL (8.4-10.2); Carbon Dioxide 19 mmol/L (22-30); Chloride 107 mmol/L (98-107); Estimated CRCL calculation 134 ml/min; Estimated Glomerular Filt Rate > 60; Glucose 241 mg/dL (65-110); Magnesium 1.7 mg/dL (1.6-2.3); Phosphorus 3.5 mg/dL (2.5-4.5); Potassium 4.3 mmol/L (3.4-5.0); Sodium 134 mmol/L (137-145)
--- NOTE | 2023-03-19 06:52 | PC.NURSE ---
pt signed insulin pump worksheet and completed it with this RN. pt's basal rate is 0.275 units/hr, however the flowsheet does not accept decimals for the Patient reported 24 Hour Insulin Total at 0600. Pt received a total of 1.1 units from his insulin pump between 0200 and 0500
[2023-03-19 07:53] LABS: Glucose Point of Care 216 mg/dl (65-105)
[2023-03-19] MEDS: ENOXAPARIN 40 MG/0.4 ML SYRINGE SUB-Q (08:01)
[2023-03-19] MEDS: PANTOPRAZOLE SODIUM IV 40 MG VIAL IV PUSH (08:05)
[2023-03-19] MEDS: MAGNESIUM SULF 1 GM/D5W 100 ML 1 GM/100 ML BAG IVPB (08:05)
--- NOTE | 2023-03-19 11:48 | PM.DS ---
DS: Admitting Diagnosis Discharge Date 03/19/23 Admitting Diagnosis Abdominal Pain Hypergylcemia DS: Discharge Diagnosis Discharge Diagnosis (1) Abdominal pain: Code(s): R10.9 - Unspecified abdominal pain Status: Acute (2) Intractable nausea and vomiting: Code(s): R11.2 - Nausea with vomiting, unspecified Status: Acute (3) Acute hyperglycemia: Code(s): R73.9 - Hyperglycemia, unspecified Status: Acute DS: Summary Hospital Course Reason for hospitalization: Abdominal Pain with Nausea/Vomiting Acute Hyperglycemia Hospital Course: ?47-year-old man with past a medical history significant for type 1 diabetes mellitus, patient UA uses insulin pump,presented with nausea, vomiting, abdominal pain. Work up was essentially unremarkable, received IV fluids, Uses insulin pump, follows up with Endocrine as outpatient, Symptoms resolved. Discharged home in stable condition. Status at Discharge Functional status at discharge: independent ambulation Overall status at discharge: patient is back to baseline Time Spent with Patient Time attestation: Total time spent providing and/or coordinating discharge services: Time spent: Greater than 30 minutes Exam Const: General: comfortable HENMT: Face/Nose/Sinus: Normal nares present Mouth: Yes moist mucous membranes Eyes: Sclera: sclerae normal Pupils: Equal, round and reactive pupils present Neck: Neck: supple Resp: Effort & Inspection: normal respiratory effort Auscultation: clear to auscultation bilaterally Cardio: Rate: regular rate Rhythm: regular rhythm Skin: General skin exam: normal color Neuro: General: gait normal Extrem: General: normal to inspection Psych: Mental Status: mental status grossly normal DS: Data Data Completed and Pending Labs on day of discharge: Labs from last 24 hours 03/19/23 03/19/23 03/19/23 07:49 05:59 02:21 WBC 13.1 H RBC 4.26 L Hgb 13.0 L Hct 39.6 L MCV 93.0 MCH 30.5 MCHC 32.8 RDW 13.5 Plt Count 248 MPV 10.2 Immature Gran % (Auto) 0.4 Neut % (Auto) 84.6 H Lymph % (Auto) 10.0 L Brewster % (Auto) 4.9 Eos % (Auto) 0.0 Baso % (Auto) 0.1 L Lymph # (Auto) 1.32 Brewster # (Auto) 0.7 H Eos # (Auto) 0.0 Baso # (Auto) 0.0 Abs Immat Gran (auto) 0.05 H Absolute Neuts (auto) 11.1 H Absolute Nucleated RBC 0.0 Nucleated RBC % 0.0 VBG pH VBG pCO2 VBG pO2 VBG HCO3 O2 Delivery Device O2 Liters/Min FiO2 Sodium 134 L Potassium 4.3 Chloride 107 Carbon Dioxide 19 L Anion Gap 8 BUN 13 Creatinine 0.70 Estim Creat Clear Calc 134 Estimated GFR > 60 Glucose 241 H POC Capillary Glucose 216 H 245 H Lactic Acid Calcium 7.8 L Phosphorus 3.5 Magnesium 1.7 Total Bilirubin AST ALT Alkaline Phosphatase Total Protein Albumin Lipase Beta-Hydroxybutyrate/Acetoacetate Urine Color Urine Appearance Urine pH Ur Specific [place] Urine Protein Urine Glucose (UA) Urine Ketones Ur Blood (Man) Urine Nitrate Urine Bilirubin Urine Urobilinogen Leukocyte Esterase Rfl Urine RBC Urine WBC Ur Squamous Epith Cells Urine Bacteria Urine Casts 03/19/23 03/18/23 03/18/23 00:34 23:23 22:31 WBC RBC Hgb Hct MCV MCH MCHC RDW Plt Count MPV Immature Gran % (Auto) Neut % (Auto) Lymph % (Auto) Brewster % (Auto) Eos % (Auto) Baso % (Auto) Lymph # (Auto) Brewster # (Auto) Eos # (Auto) Baso # (Auto) Abs Immat Gran (auto) Absolute Neuts (auto) Absolute Nucleated RBC Nucleated RBC % VBG pH 7.489 H* VBG pCO2 28.6 L* VBG pO2 84.9 H VBG HCO3 21.3 L O2 Delivery Device Not Reportable O2 Liters/Min Not Reportable FiO2 21 Sodium Potassium Chloride Carbon Dioxide Anion Gap BUN Creatinine Karoline
[2023-03-19 11:56] LABS: Glucose Point of Care 300 mg/dl (65-105)
--- NOTE | 2023-03-19 16:03 | PCCCNOTE ---
On 03/19/23, the student, [Letha Doshi], provided care and completed [facility] documentation on this patient. I have reviewed the student's documentation and agree with the findings.
== END 2023-03-19 13:20 | disposition home or self-care (01) ==
LOC: ANHED 03-19 01:21 → ANH3MEDSUR 03-19 02:51
PROVIDERS: Admitting Provider Internal Medicine; Emergency Provider Emergency Medicine; PCP Family Medicine; Visit Provider Internal Medicine
DX: R11.2 Nausea with vomiting, unspecified (principal); E10.65 Type 1 diabetes mellitus with hyperglycemia; Z96.41 Presence of insulin pump (external) (internal); D64.9 Anemia, unspecified; E03.9 Hypothyroidism, unspecified; D72.829 Elevated white blood cell count, unspecified; E53.8 Deficiency of other specified B group vitamins; K90.0 Celiac disease; R94.6 Abnormal results of thyroid function studies; F32.A Depression, unspecified; F17.210 Nicotine dependence, cigarettes, uncomplicated; F10.90 Alcohol use, unspecified, uncomplicated; F12.90 Cannabis use, unspecified, uncomplicated; Z79.4 Long term (current) use of insulin; Z79.899 Other long term (current) drug therapy
CPT/HCPCS: 36415; 71045; 74177; 80048; 80053; 81001; 82010; 82803; 82948; 83605; 83690; 83735; 84100; 85025; 96361; 96365; 96375; 99285; A9270; C9113; G0378; J0780; J1650; J1815; J3475; J7030; Q9967

== ENCOUNTER 2023-05-29 13:15 | Observation (INO) | payer BC, SELFPAY ==
[2023-05-29] VITALS (9 sets, daily range): BP systolic 130–168; BP diastolic 75–94; PULSE 80–130; RESP 12–31; TEMP 36.4–36.9; O2SAT 97–100; BMI 24.5
--- NOTE | ~2023-05-29 | CT_ITS ---
EXAMINATION: CT abdomen pelvis w con INDICATION: Abdominal pain and vomiting TECHNIQUE: Computed tomographic images of the abdomen and pelvis were obtained after the administrati on of 100 cc of Omnipaque 350 intravenous contrast. The dose-length product (DLP) was 457.82 mGy-cm. Automated exposure control and iterative reconstruction technique were employed. COMPARISON: 03/19/2023 FINDINGS: The lung bases are clear. The heart size is normal. Punctate calcifications in an otherwise normal spleen likely represent healed granulomatous disease. Changes of cholecystectomy are noted. A shunt from the left portal vein to the middle hepatic vein is again noted. The pancreas and adrenal glands are normal. The kidneys are unremarkable. No pathologically enlarged abdominal or pelvic lymph nodes are identified. No free intraperitoneal gas or evidence of bowel obstruction. There is mild rere mbar spondylosis. IMPRESSION: 1. No CT correlate for the patient's symptoms. Reviewed, dictated and finalized at location F.
[2023-05-29 13:33] LABS: Glucose Point of Care 378 mg/dl (65-105)
--- NOTE | 2023-05-29 13:44 | ECG_ITS ---
Measurements Intervals [place] Rate: 81 P: 81 MN: 144 QRS: 76 QRSD: 99 T: 22 QT: 374 QTc: 436 Interpretive Statements SINUS RHYTHM WITH INTERMITTENT ECTOPIC ATRIAL RHYTHM POSSIBLE LEFT ATRIAL ENLARGEMENT [-0.1mV P WAVE IN V1/V2] POSSIBLE LEFT VENTRICULAR HYPERTROPHY [VOLTAGE CRITERIA PLUS LAE OR QRS WIDENING] ABNORMAL ECG COMPARED TO ECG 10/03/2022 00:32:55 SINUS ARRHYTHMIA NOW PRESENT Electronically Signed On 05-29-2023 15:47:02 CDT by Jose Stanton M.D.
--- NOTE | 2023-05-29 14:06 | ED.NAVMDI ---
HPI - Nausea/Vomiting/Diarrhea General Chief complaint: Nausea/Vomiting/Diarrhea Stated complaint: vomiting/diabetic Time Seen by Provider: 05/29/23 13:33 Source: patient and RN notes reviewed Mode of arrival: ambulatory Limitations: no limitations History of Present Illness HPI Narrative: This is a 47 year old male with history of DM type 1 who presents for evaluation of nausea and vomiting. Patient states he developed nausea and vomiting this morning at 9 am. He also reports his blood sugar is running today. He denies chest pain , cough, diarrhea, abdominal pain and shortness of breath. Related Data Allergies Allergy/AdvReac Type Severity Reaction Status Date / Time No Known Allergies Allergy Verified 05/27/23 14:49 PMF Past Medical History Medical History Abnormal small bowel biopsy Anemia B12 deficiency Celiac disease Depression High thyroid stimulating hormone (TSH) level Hypothyroidism Leukocytosis Long-term insulin use Nausea Type 1 diabetes mellitus with hyperosmolar hyperglycemic state (HHS) Surgical History Surgical History Hx of cholecystectomy S/P knee surgery Left knee Family History Family History Father Lung cancer metastatic to brain Lung cancer associated cerebellar ataxia Mother Acute myocardial infarction Cerebrovascular accident Social History Social History Social History: The patient has a significant other. He has a daughter. 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 He denies any alcohol or illicit drugs. He does not have a durable power general distillery worker for healthcare. (This Note was in this Mr. Galaviz's chart before he became a patient of Dr. Amos's 11/2022) Code status full code Smoking packs per day: 0.5 Smoking cigarettes per day: 10.0 Years smoked: 35 Smoking pack-years: 17.50 Smoking status: Current every day smoker Tobacco type: cigarettes Second hand tobacco smoke exposure: Yes Alcohol intake: current Drinks per week: 4 Alcohol use details: Rumble Lora, rarely 2-3 shots per month Substance use: current Substance use type: marijuana Other substance usage details: daily, going to be quitting Lack of Transportation: No Lack of Food: Never True Current Housing: I Have Housing Concerned About Future Housing: No Difficulty Paying Gas/Electric Bills: No Difficulty Paying for Meds: No Currently Unemployed: No Education: Associate Degree Difficulty w/ Childcare or Family Care: No Living arrangements: with friend(s) Occupation/Education: occupation Additional occupation/education comments: Construction Gender identity (if verbalized by the patient): Male Spiritual care concerns: No Agree to blood products: Yes Exam Const: General: alert and ill appearing Orientation/consciousness: patient oriented x3 Limitations: no limitations Other: patient standing at sink vomiting HENMT: Head: normal to inspection Mouth: Yes Normal oral and palatal mucosa present, Yes lip normal and Yes moist mucous membranes Eyes: EOM: EOMs intact bilaterally Neck: Neck: normal visual inspection Chest: Chest palpation & inspection: normal inspection of the chest Resp: Effort & Inspection: normal respiratory effort Auscultation: clear to auscultation bilaterally Cardio: Rate: regular rate Rhythm: regular rhythm Other: no murmur GI: GI Palp: Yes Soft to palpation (nontender, no guarding, no rebound) Auscultation: normal bowel sounds Back/Spine/Pelvis: Back: no CVA tenderness Skin: General skin exam: normal color Rashes: no rashes Neuro: General: patient oriented x3, moves all extremities and CN's II-XI i
[2023-05-29 14:08] LABS: Fractional Inspired Oxygen 21 %; HCO3 VBG 17.9 mEq/l (24.0-30.0); PO2 VBG 86.8 mmHg (35.0-45.0); pH VBG 7.393 (7.300-7.400)
[2023-05-29 14:09] LABS: Device ROOM AIR; PCO2 VBG 30.1 mmHg (42.0-48.0)
[2023-05-29 14:11] LABS: Basophils Percent Auto 0.3 % (0.2-1.2); Eosinophils Percent Auto 0.3 % (0-4.4); Hematocrit 45.6 % (42.0-52.0); Hemoglobin 15.1 g/dL (14.0-18.0); Immature Granulocyte Absolute 0.14 K/mm3 (0.00-0.031); Immature Granulocyte Percent A 1.1 % (0-0.5); Lymphocytes Absolute Auto 1.36 K/mm3 (0.9-3.2); Lymphocytes Percent Auto 10.8 % (18.3-44.2); Mean Corpuscular HGB Conc 33.1 g/dl (32-36); Mean Corpuscular Hemoglobin 30.6 pg (26-34); Mean Corpuscular Volume 92.5 fl (80-100); Mean Platelet Volume 10.1 fl (7.4-10.4); Monocytes Absolute Auto 0.5 K/mm3 (0.1-0.6); Monocytes Percent Auto 3.8 % (2.6-8.5); Neutrophils Absolute Auto 10.6 K/mm3 (1.3-6.7); Neutrophils Percent Auto 83.7 % (45.5-73.1); Platelet Count Result 267 k/mm3 (150-375); Red Blood Count 4.93 M/mm3 (4.6-6.20); Red Cell Distribution Width 13.4 % (11.5-14.5); White Blood Count 12.6 K/mm3 (4.5-10.0)
[2023-05-29 14:21] LABS: Alanine Aminotransferase 25 U/L (6-50); Albumin Level 4.4 g/dL (3.5-5.1); Alkaline Phosphatase 128 U/L (38-126); Anion Gap 17 mmol/L (8-16); Aspartate Amino Transferase 36 U/L (17-59); Blood Urea Nitrogen 16 mg/dL (9-20); Calcium 9.2 mg/dL (8.4-10.2); Carbon Dioxide 15 mmol/L (22-30); Chloride 102 mmol/L (98-107); Estimated CRCL calculation 134 ml/min; Estimated Glomerular Filt Rate > 60; Glucose 346 mg/dL (65-110); Magnesium 1.7 mg/dL (1.6-2.3); Phosphorus 2.9 mg/dL (2.5-4.5); Potassium 4.5 mmol/L (3.4-5.0); Sodium 134 mmol/L (137-145)
[2023-05-29 14:25] LABS: Beta-Hydroxybutyrate/Acetoacetate 2.73 mmol/L (0.02-0.27)
[2023-05-29] MEDS: SODIUM CHLORIDE 0.9% IV 1,000 ML 999 ML IV CONT ×3 (14:30→19:25)
[2023-05-29] MEDS: ONDANSETRON INJ 4 MG/2 ML VIAL IV PUSH (14:31)
[2023-05-29 14:36] LABS: Appearance Urine Clear (Clear); Bilirubin Urine Negative (Negative); Blood Urine Negative (Negative); Color Urine Yellow (Yellow); Glucose Urine UA 3+ mg/dL (Negative); Ketones Urine 3+ mg/dL (Negative); Leukocyte Esterase Ur Negative LEU/UL (Negative); Nitrate Urine Negative (Negative); Protein Urine Negative (Negative); Specific Grav Ur 1.034 (1.001-1.035); Urobilinogen Urine 0.2 mg/dL (<2.0); pH Urine 5.5 (5.0-9.0)
[2023-05-29 14:39] LABS: Add Urine Microscopic? NO
[2023-05-29 15:37] LABS: Glucose Point of Care 323 mg/dl (65-105)
[2023-05-29] MEDS: METOCLOPRAMIDE HCL INJ 10 MG/2 ML VIAL IV PUSH (15:41)
[2023-05-29] MEDS: INSULIN HUMAN REGULAR (*BKC) 100 UNITS/ML 10 UNITS SUB-Q (16:00)
[2023-05-29 16:25] LABS: Anion Gap 16 mmol/L (8-16); Blood Urea Nitrogen 16 mg/dL (9-20); Calcium 8.3 mg/dL (8.4-10.2); Carbon Dioxide 16 mmol/L (22-30); Chloride 105 mmol/L (98-107); Estimated CRCL calculation 134 ml/min; Estimated Glomerular Filt Rate > 60; Glucose 304 mg/dL (65-110); Potassium 4.6 mmol/L (3.4-5.0); Sodium 137 mmol/L (137-145)
[2023-05-29 17:02] LABS: Glucose Point of Care 256 mg/dl (65-105)
[2023-05-29 18:22] LABS: Hemoglobin A1C 6.6 % (<5.7)
--- NOTE | 2023-05-29 20:19 | PM.IMHP ---
H&P: HPI History of Present Illness Date/Time: 05/29/23 20:19 Chief Complaint: ABDOMINAL PAIN Narrative: THIS IS A 47-YEAR-OLD MALE WITH PAST MEDICAL HISTORY SIGNIFICANT FOR TYPE 1 DIABETES MELLITUS, ON INSULIN PUMP PATIENT PRESENTS TO THE EMERGENCY ROOM DUE TO NAUSEA VOMITING DIARRHEA ABDOMINAL PAIN THAT STARTED EARLIER IN THE MORNING PATIENT HAS BEEN USING HIS INSULIN PUMP HAS BEEN KEEPING HIS DIET DENIES ANY FEVERS, RIGORS, CHILLS HAS BEEN HIS USUAL STATE OF HEALTH UP UNTIL THIS POINT PRELIMINARY WORKUP WAS SIGNIFICANT FOR ELEVATED BETA HYDROXYBUTYRATE. PATIENT HAS BEEN ADMITTED TO IMU. EXAMINATION: CT abdomen pelvis w con INDICATION: Abdominal pain and vomiting TECHNIQUE: Computed tomographic images of the abdomen and pelvis were obtained after the administration of 100 cc of Omnipaque 350 intravenous contrast. The dose-length product (DLP) was 457.82 mGy-cm. Automated exposure control and iterative reconstruction technique were employed. COMPARISON: 03/19/2023 FINDINGS: The lung bases are clear. The heart size is normal. Punctate calcifications in an otherwise normal spleen likely represent healed granulomatous disease. Changes of cholecystectomy are noted. A shunt from the left portal vein to the middle hepatic vein is again noted. The pancreas and adrenal glands are normal. The kidneys are unremarkable. No pathologically enlarged abdominal or pelvic lymph nodes are identified. No free intraperitoneal gas or evidence of bowel obstruction. There is mild lumbar spondylosis. IMPRESSION: 1. No CT correlate for the patient's symptoms. Review of Systems Review of Systems: NAUSEA ,VOMITING, ABDOMINAL PAIN, DIARRHEA. Constitutional: Constitutional: Denies chills, Denies fever(s), Denies malaise, Denies night sweats and Denies weakness Eyes: Eyes: Denies change in vision ENT: Denies dysphagia and Denies odynophagia Cardiovascular: Cardiovascular: Denies chest pain, Denies irregular heart rhythm, Denies leg edema, Denies lightheadedness, Denies radiating jaw, neck or arm pain and Denies palpitations Respiratory: Respiratory: Denies chest congestion, Denies cough and Denies excessive phlegm production Gastrointestinal: Gastrointestinal: Reports abdominal pain, Denies dyspepsia, Denies heartburn, Reports diarrhea, Reports nausea and Reports vomiting Genitourinary: Genitourinary: Denies dysuria Musculoskeletal: Musculoskeletal: Reports back pain Integumentary/Breasts: Skin/Breast: Denies rash Neurologic: Denies vertigo, Denies dizziness, Denies focal weakness and Denies Sensory deficit (Neuro) Psychiatric: Psychiatric: Reports no additional psychiatric complaints and Reports as per HPI Endocrine: Endocrine: Denies cold intolerance, Denies fatigue, Denies flushing, Denies heat intolerance, Denies polyphagia, Denies polydipsia, Denies polyuria, Denies palpitations and Reports other (ABDOMINAL PAIN NAUSEA VOMITING DIARRHEA) Hematologic/Lymphatic: Hematologic/Lymphatic: Reports no additional hematologic/lymphatic complaints and Reports as per HPI Allergic/Immunologic: Allergic/Immunologic: Reports no additional allergic/immunologic complaints and Reports as per HPI PMFSH Past Medical History Medical History Abnormal small bowel biopsy Anemia B12 deficiency Celiac disease Depression High thyroid stimulating hormone (TSH) level Hypothyroidism Leukocytosis Long-term insulin use Nausea Type 1 diabetes mellitus with hyperosmolar hyperglycemic state (HHS) Surgical History Surgical History Hx of cholecystectomy S/P knee surgery Left knee Family History Family History Father Lung cancer metastatic to brain Lung cancer associated cerebellar ataxia Mother Acute myocardial infarction Cerebrovascular accident Social History Social Histor
[2023-05-29 20:31] LABS: Glucose Point of Care 163 mg/dl (65-105)
[2023-05-29 20:34] LABS: Anion Gap 7 mmol/L (8-16); Blood Urea Nitrogen 15 mg/dL (9-20); Calcium 8.5 mg/dL (8.4-10.2); Carbon Dioxide 19 mmol/L (22-30); Chloride 110 mmol/L (98-107); Estimated CRCL calculation 155 ml/min; Estimated Glomerular Filt Rate > 60; Glucose 167 mg/dL (65-110); Potassium 4.2 mmol/L (3.4-5.0); Sodium 136 mmol/L (137-145)
[2023-05-29 22:03] LABS: Glucose Point of Care 152 mg/dl (65-105)
--- NOTE | 2023-05-29 22:10 | ADMGEN ---
This patient, Jesus Galaviz, was admitted to IMU Room 214-01 at 2135. Patient/family oriented to hospital policies and general routines including ID bracelet, bed and alarms, visiting hours, pain management, procedures, bathroom and other care routines, personal items, smoking policy, room service/diet, and visiting hours. Information on how to activate the Rapid Response Team has been discussed. Patient/Family are encouraged to report perceived risks to care and to ask questions if they do not understand what they are told or what they should do.
[2023-05-30] VITALS: PULSE 100
[2023-05-30] MEDS: traMADol/ACETAMINOPHEN (*CRX) (ULTRACET) 37.5/325 MG TABLET 1 TAB PO (00:25)
[2023-05-30] MEDS: FAMOTIDINE 20 MG/2 ML VIAL IV PUSH ×2 (00:26→08:44)
[2023-05-30 00:27] VITALS: BP 167/85; PULSE 82; RESP 20; TEMP 36.6; O2SAT 97
[2023-05-30 00:31] LABS: Anion Gap 6 mmol/L (8-16); Blood Urea Nitrogen 14 mg/dL (9-20); Calcium 8.3 mg/dL (8.4-10.2); Carbon Dioxide 22 mmol/L (22-30); Chloride 105 mmol/L (98-107); Estimated CRCL calculation 134 ml/min; Estimated Glomerular Filt Rate > 60; Glucose 179 mg/dL (65-110); Magnesium 1.7 mg/dL (1.6-2.3); Phosphorus 3.5 mg/dL (2.5-4.5); Potassium 4.1 mmol/L (3.4-5.0); Sodium 133 mmol/L (137-145)
[2023-05-30 00:37] LABS: Beta-Hydroxybutyrate/Acetoacetate 1.44 mmol/L (0.02-0.27)
[2023-05-30 00:51] LABS: Glucose Point of Care 181 mg/dl (65-105)
[2023-05-30 04:00] VITALS: BP 155/65; PULSE 82; RESP 20; TEMP 36.4; O2SAT 98
[2023-05-30 05:19] LABS: Basophils Percent Auto 0.2 % (0.2-1.2); Eosinophils Percent Auto 0.1 % (0-4.4); Hematocrit 37.2 % (42.0-52.0); Hemoglobin 12.4 g/dL (14.0-18.0); Immature Granulocyte Absolute 0.05 K/mm3 (0.00-0.031); Immature Granulocyte Percent A 0.4 % (0-0.5); Lymphocytes Absolute Auto 2.28 K/mm3 (0.9-3.2); Lymphocytes Percent Auto 19.4 % (18.3-44.2); Mean Corpuscular HGB Conc 33.3 g/dl (32-36); Mean Corpuscular Hemoglobin 30.7 pg (26-34); Mean Corpuscular Volume 92.1 fl (80-100); Mean Platelet Volume 10.1 fl (7.4-10.4); Monocytes Percent Auto 8.7 % (2.6-8.5); Neutrophils Absolute Auto 8.4 K/mm3 (1.3-6.7); Neutrophils Percent Auto 71.2 % (45.5-73.1); Platelet Count Result 228 k/mm3 (150-375); Red Blood Count 4.04 M/mm3 (4.6-6.20); Red Cell Distribution Width 13.3 % (11.5-14.5); White Blood Count 11.8 K/mm3 (4.5-10.0)
[2023-05-30 05:33] LABS: Alanine Aminotransferase 19 U/L (6-50); Albumin Level 3.3 g/dL (3.5-5.1); Alkaline Phosphatase 80 U/L (38-126); Anion Gap 6 mmol/L (8-16); Aspartate Amino Transferase 25 U/L (17-59); Bilirubin,Total 2.5 mg/dL (0.2-1.3); Blood Urea Nitrogen 14 mg/dL (9-20); Calcium 8.2 mg/dL (8.4-10.2); Carbon Dioxide 22 mmol/L (22-30); Chloride 104 mmol/L (98-107); Estimated CRCL calculation 155 ml/min; Estimated Glomerular Filt Rate > 60; Glucose 193 mg/dL (65-110); Potassium 3.7 mmol/L (3.4-5.0); Sodium 132 mmol/L (137-145)
--- NOTE | 2023-05-30 06:45 | PC.NURSE ---
Pt transferred from IMU to [facility] room 255 via wheelchair.
--- NOTE | 2023-05-30 06:46 | PC.NURSE ---
This patient, Jesus Galaviz, was transferred to [facility] on 05/30/23 at 0630. Personal belongings sent with patient. Report given to SAMMY Munoz. Appropriate documentation sent with patient.
[2023-05-30 07:36] LABS: Bilirubin Indirect 2.4 mg/dL (0-1.1)
[2023-05-30 08:00] VITALS: BP 136/81; PULSE 79; RESP 19; TEMP 37.3; O2SAT 96
[2023-05-30 08:03] LABS: Glucose Point of Care 199 mg/dl (65-105)
[2023-05-30 08:41] LABS: Anion Gap 7 mmol/L (8-16); Blood Urea Nitrogen 15 mg/dL (9-20); Calcium 7.9 mg/dL (8.4-10.2); Carbon Dioxide 23 mmol/L (22-30); Chloride 104 mmol/L (98-107); Estimated CRCL calculation 134 ml/min; Estimated Glomerular Filt Rate > 60; Glucose 188 mg/dL (65-110); Potassium 3.8 mmol/L (3.4-5.0); Sodium 134 mmol/L (137-145)
[2023-05-30] MEDS: FLUoxetine HCL 20 MG CAPSULE PO (08:43)
[2023-05-30 08:44] VITALS: RESP 18; O2SAT 96
[2023-05-30] MEDS: LEVOTHYROXINE SODIUM 112 MCG TABLET PO (08:44)
[2023-05-30 11:44] LABS: Glucose Point of Care 229 mg/dl (65-105)
[2023-05-30 12:30] VITALS: BP 142/80; PULSE 79; RESP 17; TEMP 36.6; O2SAT 97
[2023-05-30 13:00] VITALS: BMI 25.2
[2023-05-30 13:22] LABS: Glucose Point of Care 350 mg/dl (65-105)
--- NOTE | 2023-05-30 14:16 | PM.DS ---
DS: Admitting Diagnosis Discharge Date 05/30/23 Admitting Diagnosis Nausea and vomiting DS: Discharge Diagnosis Discharge Diagnosis (1) Abdominal pain: Code(s): R10.9 - Unspecified abdominal pain Status: Acute (2) Intractable nausea and vomiting: Code(s): R11.2 - Nausea with vomiting, unspecified Status: Acute (3) DKA (diabetic ketoacidosis): Code(s): E11.10 - Type 2 diabetes mellitus with ketoacidosis without coma Status: Acute (4) Type 1 diabetes mellitus: Qualifiers: Diabetes mellitus complication status: with hyperglycemia Qualified Code(s): E10.65 - Type 1 diabetes mellitus with hyperglycemia Code(s): E10.9 - Type 1 diabetes mellitus without complications Status: Chronic (5) Insulin pump in place: Code(s): Z96.41 - Presence of insulin pump (external) (internal) Status: Acute (6) Tobacco dependence: Code(s): F17.200 - Nicotine dependence, unspecified, uncomplicated Status: Acute DS: Summary Hospital Course Reason for hospitalization: 47yo male with DM Type I here for nausea and vomiting. Please see H&P for details. Hospital Course: Patient presents with nausea and vomiting. EKG showing NSR with PACs. CT A/P showing no acute findings. His glucose 346 and bicarb 15 with AG 17. BHO 2.73 and TBili 3.0. Bili almost all indirect. He was started on IV fluids and insulin. His glucose improved. His anion gap closed. He was started on diabetic diet. He had clinical improvement. He was resumed on his insulin pump. He was able to be discharged home on 05/30/23. Status at Discharge Cognitive/behavioral status at discharge: stable Time Spent with Patient Time attestation: Total time spent providing and/or coordinating discharge services: 35 minutes Time spent: Greater than 30 minutes Exam Narrative: AF 97.9 142/80 79 17 97% ra Gen - NARD Chest - CTA bilaterally, nml RR CV - RRR S1/S2 Abd - Soft, NT/ND, Positive BS Ext - No pedal edema Psych - Nml mood and affect Skin - Warm and dry DS: Data Data Completed and Pending Labs on day of discharge: Labs from last 24 hours 05/30/23 05/30/23 05/30/23 13:19 11:41 08:13 WBC RBC Hgb Hct MCV MCH MCHC RDW Plt Count MPV Immature Gran % (Auto) Neut % (Auto) Lymph % (Auto) Grand % (Auto) Eos % (Auto) Baso % (Auto) Lymph # (Auto) Grand # (Auto) Eos # (Auto) Baso # (Auto) Abs Immat Gran (auto) Absolute Neuts (auto) Absolute Nucleated RBC Nucleated RBC % Sodium 134 L Potassium 3.8 Chloride 104 Carbon Dioxide 23 Anion Gap 7 L BUN 15 Creatinine 0.70 Estim Creat Clear Calc 134 Estimated GFR > 60 Glucose 188 H POC Capillary Glucose 350 H 229 H Hemoglobin A1c Calcium 7.9 L Phosphorus Magnesium Total Bilirubin Indirect Bilirubin AST ALT Alkaline Phosphatase Total Protein Albumin Beta-Hydroxybutyrate/Acetoacetate Urine Color Urine Appearance Urine pH Ur Specific [place] Urine Protein Urine Glucose (UA) Urine Ketones Ur Blood (Man) Urine Nitrate Urine Bilirubin Urine Urobilinogen Leukocyte Esterase Rfl 05/30/23 05/30/23 05/30/23 07:52 04:54 04:51 WBC 11.8 H RBC 4.04 L Hgb 12.4 L Hct 37.2 L MCV 92.1 MCH 30.7 MCHC 33.3 RDW 13.3 Plt Count 228 MPV 10.1 Immature Gran % (Auto) 0.4 Neut % (Auto) 71.2 Lymph % (Auto) 19.4 Grand % (Auto) 8.7 H Eos % (Auto) 0.1 Baso % (Auto) 0.2 Lymph # (Auto) 2.28 Grand # (Auto) 1.0 H Eos # (Auto) 0.0 Baso # (Auto) 0.0 Abs Immat Gran (auto) 0.05 H Absolute Neuts (auto) 8.4 H Absolute Nucleated RBC 0.0 Nucleated RBC % 0.0 Sodium 132 L Potassium 3.7 Chloride 104 Carbon Dioxide 22 Anion Gap 6 L BUN 14 Creatinine 0.60 L Estim Crea
== END 2023-05-30 15:00 | disposition home or self-care (01) ==
LOC: ANHED 13:51 → ANHIMU 18:37 → ANH2MED 05-30 06:44
PROVIDERS: Admitting Provider Internal Medicine; Emergency Provider General Practice; PCP Family Medicine; Visit Provider Internal Medicine
DX: R10.9 Unspecified abdominal pain (principal); R11.2 Nausea with vomiting, unspecified; E11.10 Type 2 diabetes mellitus with ketoacidosis without coma; Z96.41 Presence of insulin pump (external) (internal); R19.7 Diarrhea, unspecified; D64.9 Anemia, unspecified; E53.8 Deficiency of other specified B group vitamins; F32.A Depression, unspecified; D72.829 Elevated white blood cell count, unspecified; K90.0 Celiac disease; E03.9 Hypothyroidism, unspecified; R94.6 Abnormal results of thyroid function studies; R94.31 Abnormal electrocardiogram [ECG] [EKG]; Z90.49 Acquired absence of other specified parts of digestive tract; F17.210 Nicotine dependence, cigarettes, uncomplicated; F10.90 Alcohol use, unspecified, uncomplicated; F12.90 Cannabis use, unspecified, uncomplicated; Z79.4 Long term (current) use of insulin
CPT/HCPCS: 36415; 74177; 80048; 80053; 81003; 82010; 82803; 82948; 83036; 83735; 84100; 85025; 93005; 96361; 96374; 96375; 96376; 99285; A9270; G0378; J1815; J2405; J2765; J7030; Q9967

== ENCOUNTER 2023-12-12 09:06 | Outpatient (CLI) | payer BC, SELFPAY ==
[2023-12-12 19:29] LABS: Hematocrit 45.6 % (42.0-52.0); Hemoglobin 14.6 g/dL (14.0-18.0); Mean Corpuscular Hemoglobin 30.4 pg (26-34); Mean Platelet Volume 10.6 fl (7.4-10.4); Platelet Count Result 299 k/mm3 (150-375); Red Cell Distribution Width 13.9 % (11.5-14.5); White Blood Count 6.2 K/mm3 (4.5-10.0)
[2023-12-12 21:07] LABS: Creatinine Urine 163.6 mg/dL
[2023-12-12 21:48] LABS: MALB Creatinine Ratio < 3.7 mg/g (0-30); Microalbumin Urine Random < 6.0 mg/L (0-16.7)
[2023-12-12 22:46] LABS: Alanine Aminotransferase 24 U/L (6-50); Albumin Level 4.2 g/dL (3.5-5.1); Alkaline Phosphatase 95 U/L (38-126); Anion Gap 7 mmol/L (4-12); Aspartate Amino Transferase 100 U/L (17-59); Bilirubin,Total 1.2 mg/dL (0.2-1.3); Blood Urea Nitrogen 11 mg/dL (9-20); Calcium 9.3 mg/dL (8.4-10.2); Carbon Dioxide 28 mmol/L (22-30); Chloride 107 mmol/L (98-107); Cholesterol 112 mg/dL (0-200); Estimated Glomerular Filt Rate > 60; Glucose 93 mg/dL (65-110); HDL Direct 29 mg/dL; Potassium 4.9 mmol/L (3.4-5.0); Sodium 142 mmol/L (137-145); Triglycerides 44 mg/dL (<150)
[2023-12-12 22:57] LABS: LDL Cholesterol Direct 77 mg/dL
[2023-12-12 23:48] LABS: Folic Acid 12.4 ng/mL (2.76->20)
== END 2023-12-12 09:07 | disposition home or self-care (01) ==
LOC: ANHBWCLAB 09:08
PROVIDERS: PCP Nurse Practitioner Adult Health; Visit Provider Nurse Practitioner Adult Health
DX: E53.8 Deficiency of other specified B group vitamins (principal); E10.649 Type 1 diabetes mellitus with hypoglycemia without coma
CPT/HCPCS: 36415; 80053; 80061; 82043; 82565; 82607; 82746; 85027

== ENCOUNTER 2024-01-22 15:34 | Inpatient (IN) | payer BC, SELFPAY ==
[2024-01-22] VITALS (15 sets, daily range): BP systolic 130–172; BP diastolic 66–99; PULSE 61–155; RESP 12–35; TEMP 36.5–37.3; O2SAT 94–100; BMI 23.0
--- NOTE | ~2024-01-22 | XR_ITS ---
XR chest 1V portable Ordering provider: Jayleen Lackey MD History: 48 years Male with . r/o PNA . Comparison: March 19, 2023 FINDINGS: MEDIASTINUM: The cardiac silhouette is not enlarged. LUNGS: No infiltrates, effusions or pneumothorax. OTHER: No free air under the diaphragm. IMPRESSION: No acute cardiopulmonary pathology. Reviewed, dictated and finalized at location A.
--- NOTE | ~2024-01-22 | CT_ITS ---
CT abdomen pelvis w con Ordering provider: Jayleen Lackey MD History: 48 years Male with . vomiting . Comparison: May 29, 2023 Technique: CT abdomen and pelvis with IV and without oral contrast. Radiation reduction technique uti lized. Findings: VISUALIZED LOWER CHEST: Dependent atelectatic changes are noted. UPPER ABDOMINAL ORGANS: Liver: Mild fat infiltration. Gallbladder: Status post cholecystectomy. Spleen: Tiny calcifications Stomach/duodenum: Normal. Pancreas: Normal. Adrenals: Normal. Kidneys: Normal. PELVIC ORGANS: The bladder is normal. BOWEL AND MESENTERY: Colon: No evidence of diverticulitis. The appendix is not well demonstrated. Small Bowel: Normal. No obstruction. Peritoneum/mesentery: No free air or free fluid. No mesenteric lymphadenopathy. RETROPERITONEUM: Normal aorta. No retroperitoneal lymphadenopathy. MUSCULOSKELETAL: Superficial soft tissues: The superficial soft tissues are normal. Bones: Normal spine. Small sclerotic area in the right femoral intercondylar area. Most likely benign . Follow-up advised. IMPRESSION: 1. No definite acute abdominal process. Reviewed, dictated and finalized at location A.
--- NOTE | 2024-01-22 15:45 | ED.NAVMDI ---
HPI - Nausea/Vomiting/Diarrhea General Chief complaint: Nausea/Vomiting/Diarrhea Stated complaint: N/V Time Seen by Provider: 01/22/24 15:39 Source: patient Mode of arrival: ambulatory Limitations: no limitations History of Present Illness HPI Narrative: 48-year-old male with insulin-dependent diabetes presents with acute onset nausea, vomiting, and diarrhea starting at approximately 11:00 a.m. today. He has lost count of the number of times he has vomited but it is nonbloody nonbilious emesis. Last bowel movement was runny. He denies any fever. He low abdominal pain bilateral lower quadrants but states this started after his vomiting and diarrhea. He wears an insulin pump but states that his blood sugars have been reading high recently. He has a history of DKA. Related Data Allergies Allergy/AdvReac Type Severity Reaction Status Date / Time No Known Allergies Allergy Verified 01/22/24 15:48 PMFSH Past Medical History Medical History Abnormal small bowel biopsy Anemia B12 deficiency Celiac disease Depression DKA (diabetic ketoacidosis) High thyroid stimulating hormone (TSH) level Hypothyroidism Leukocytosis Long-term insulin use Nausea Type 1 diabetes mellitus with hyperosmolar hyperglycemic state (HHS) Surgical History Surgical History Hx of cholecystectomy S/P knee surgery Left knee Family History Family History Father Lung cancer metastatic to brain Lung cancer associated cerebellar ataxia Mother Acute myocardial infarction Cerebrovascular accident Social History Social History Social History: The patient has a significant other. He has a daughter. 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 He denies any alcohol or illicit drugs. He does not have a durable power litigation attorney associate for healthcare. (This Note was in this Mr. Galaviz's chart before he became a patient of Dr. Amos's 11/2022) Code status full code Smoking packs per day: 0.5 Smoking cigarettes per day: 10.0 Years smoked: 35 Smoking pack-years: 17.50 Smoking status: Current every day smoker Tobacco type: cigarettes Second hand tobacco smoke exposure: Yes Alcohol intake: current Drinks per week: 4 Alcohol use details: Rumble Lora, rarely 2-3 shots per month Substance use: current Substance use type: marijuana Other substance usage details: daily, going to be quitting Lack of Transportation: No Lack of Food: Never True Current Housing: I Have Housing Concerned About Future Housing: No Difficulty Paying Gas/Electric Bills: No Difficulty Paying for Meds: No Currently Unemployed: No Education: Associate Degree Difficulty w/ Childcare or Family Care: No Living arrangements: with friend(s) Occupation/Education: occupation Additional occupation/education comments: Construction Gender identity (if verbalized by the patient): Male Spiritual care concerns: Yes Agree to blood products: Yes Exam Narrative: GENERAL: well-nourished, appears unwell HEAD: Normocephalic, atraumatic. EYES: Non injected, non icteric ENT: Nares clear, no rhinorrhea or epistaxis. NECK: Supple. CHEST: Speaking in full sentences. No respiratory distress. HEART: Regular rate and rhythm. . ABDOMEN: Soft, nondistended. Mild tenderness to pounding patient in right lower quadrant left lower quadrant without rigidity or guarding. Not peritoneal. EXTREMITIES: Normal range of motion. No edema. SKIN: Warm, dry, no rash. NEURO: No focal deficits. Alert and oriented x3. PSYCH: Normal mood and affect. Course Vital Signs Vital signs: Vital Signs Temperature 97.7 F 01/22/24 15:35 Pulse Rate 61 01/22/24 15
[2024-01-22 15:46] LABS: Glucose Point of Care 303 mg/dl (65-105)
[2024-01-22] MEDS: SODIUM CHLORIDE 0.9% IV 1,000 ML 999 ML IV CONT ×3 (15:48→20:19)
[2024-01-22] MEDS: ONDANSETRON INJ 4 MG/2 ML VIAL IV PUSH (15:50)
[2024-01-22 15:55] LABS: Basophils Percent Auto 0.4 % (0.2-1.2); Eosinophils Percent Auto 0.2 % (0-4.4); Hematocrit 45.5 % (42.0-52.0); Hemoglobin 15.5 g/dL (14.0-18.0); Immature Granulocyte Absolute 0.04 K/mm3 (0.00-0.031); Immature Granulocyte Percent A 0.4 % (0-0.5); Lymphocytes Percent Auto 19.9 % (18.3-44.2); Mean Corpuscular HGB Conc 34.1 g/dl (32-36); Mean Corpuscular Hemoglobin 30.2 pg (26-34); Mean Corpuscular Volume 88.5 fl (80-100); Mean Platelet Volume 9.8 fl (7.4-10.4); Monocytes Absolute Auto 0.7 K/mm3 (0.1-0.6); Monocytes Percent Auto 6.3 % (2.6-8.5); Neutrophils Absolute Auto 7.7 K/mm3 (1.3-6.7); Neutrophils Percent Auto 72.8 % (45.5-73.1); Platelet Count Result 293 k/mm3 (150-375); Red Blood Count 5.14 M/mm3 (4.6-6.20); Red Cell Distribution Width 12.6 % (11.5-14.5); White Blood Count 10.5 K/mm3 (4.5-10.0)
[2024-01-22 16:06] LABS: Alanine Aminotransferase 30 U/L (6-50); Albumin Level 4.5 g/dL (3.5-5.1); Alkaline Phosphatase 141 U/L (38-126); Anion Gap 14 mmol/L (4-12); Aspartate Amino Transferase 42 U/L (17-59); Bilirubin,Total 2.5 mg/dL (0.2-1.3); Blood Urea Nitrogen 15 mg/dL (9-20); Calcium 9.3 mg/dL (8.4-10.2); Carbon Dioxide 17 mmol/L (22-30); Chloride 105 mmol/L (98-107); Estimated CRCL calculation 132 ml/min; Estimated Glomerular Filt Rate > 60; Glucose 295 mg/dL (65-110); Lipase 67 U/L (23-300); Magnesium 1.8 mg/dL (1.6-2.3); Potassium 4.1 mmol/L (3.4-5.0); Sodium 136 mmol/L (137-145)
[2024-01-22 16:12] LABS: Beta-Hydroxybutyrate/Acetoacetate 1.29 mmol/L (0.02-0.27)
[2024-01-22] MEDS: PROCHLORPERAZINE EDISYLATE 10 MG/2 ML VIAL IV PUSH ×3 (16:32→23:03)
[2024-01-22 16:39] LABS: Influenza A QL RT-PCR Negative (Negative); Influenza B QL RT-PCR Negative (Negative); SARS-CoV-2 RNA PCR Negative (Negative)
[2024-01-22 16:46] LABS: Glucose Point of Care 321 mg/dl (65-105)
[2024-01-22] MEDS: INSULIN HUMAN REGULAR (*BKC) 100 UNITS/ML 8 UNITS IV PUSH (16:46)
[2024-01-22] MEDS: MORPHINE SULFATE (*CRX) 4 MG/ML INJ IV PUSH (17:21)
[2024-01-22 17:26] LABS: Glucose Point of Care 265 mg/dl (65-105)
[2024-01-22 18:44] LABS: Anion Gap 6 mmol/L (4-12); Blood Urea Nitrogen 15 mg/dL (9-20); Calcium 8.2 mg/dL (8.4-10.2); Carbon Dioxide 22 mmol/L (22-30); Chloride 110 mmol/L (98-107); Estimated CRCL calculation 152 ml/min; Estimated Glomerular Filt Rate > 60; Glucose 202 mg/dL (65-110); Sodium 138 mmol/L (137-145)
[2024-01-22] MEDS: HALOPERIDOL LACTATE 5 MG/ML VIAL 2.5 MG IV PUSH (19:17)
--- NOTE | 2024-01-22 19:26 | ECG_ITS ---
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 Measurements Intervals [place] Rate: 104 P: 82 GA: 139 QRS: 80 QRSD: 109 T: 21 QT: 343 QTc: 451 Interpretive Statements SINUS TACHYCARDIA No previous ECG available for comparison Electronically Signed On 01-23-2024 13:36:25 CDT by Celio Richey M.D.
[2024-01-22 19:37] LABS: Appearance Urine Clear (Clear); Bacteria Urine None Seen /hpf; Bilirubin Urine Negative (Negative); Blood Urine Negative (Negative); Color Urine Yellow (Yellow); Glucose Urine UA 3+ mg/dL (Negative); Ketones Urine 2+ mg/dL (Negative); Leukocyte Esterase Ur Negative LEU/UL (Negative); Nitrate Urine Negative (Negative); Non Pathogenic Casts 0-2; Protein Urine Trace mg/dL (Negative); RBC Urine 0-2 /hpf (0-2); Squamous Epithelial Cell Urine None Seen /hpf (Few); Urobilinogen Urine 0.2 mg/dL (<2.0); WBC Urine 0-5 /hpf (0-3)
[2024-01-22 19:38] LABS: Add Urine Microscopic? YES; Specific Grav Ur 1.048 (1.001-1.035)
[2024-01-22 20:17] LABS: Glucose Point of Care 342 mg/dl (65-105)
[2024-01-22 20:48] LABS: Anion Gap 17 mmol/L (4-12); Blood Urea Nitrogen 14 mg/dL (9-20); Calcium 8.5 mg/dL (8.4-10.2); Carbon Dioxide 14 mmol/L (22-30); Chloride 106 mmol/L (98-107); Estimated CRCL calculation 132 ml/min; Estimated Glomerular Filt Rate > 60; Glucose 322 mg/dL (65-110); Potassium 4.4 mmol/L (3.4-5.0); Sodium 137 mmol/L (137-145)
[2024-01-22 21:04] LABS: Glucose Point of Care 309 mg/dl (65-105)
[2024-01-22 21:32] LABS: Hemoglobin A1C 6.8 % (<5.7)
[2024-01-22 21:41] LABS: Magnesium 1.5 mg/dL (1.6-2.3); Phosphorus 3.6 mg/dL (2.5-4.5)
[2024-01-22] MEDS: INSULIN HUMAN REGULAR (*BKC) 100 UNITS in SODIUM CHLORIDE 0.9% IV 99 ML 8 UNITS IV CONT (21:49)
[2024-01-22 21:52] LABS: Glucose Point of Care 336 mg/dl (65-105)
[2024-01-22] MEDS: SODIUM CHLORIDE 0.9% IV 1,000 ML 150 ML IV CONT (21:52)
--- NOTE | 2024-01-22 22:20 | ADMGEN ---
This patient, Jesus Galaviz, was admitted to Intensive Care Unit-8. Patient/family oriented to hospital policies and general routines including ID bracelet, bed and alarms, visiting hours, pain management, procedures, bathroom and other care routines, personal items, smoking policy, room service/diet, and visiting hours. Information on how to activate the Rapid Response Team has been discussed. Patient/Family are encouraged to report perceived risks to care and to ask questions if they do not understand what they are told or what they should do.
[2024-01-22] MEDS: MAGNESIUM SULF 1 GM/D5W 100 ML 1 GM/100 ML BAG IVPB (22:30)
[2024-01-22 22:37] LABS: Glucose Point of Care 349 mg/dl (65-105)
[2024-01-22 23:07] LABS: Amphetamine Screen Urine Negative (Negative); Barbiturate Screen Urine Negative (Negative); Benzodiazepines Screen Urine Negative (Negative); Cannabinoid Screen Urine Positive (Negative); Cocaine Screen Urine Negative (Negative); Methadone Screen Urine Negative (Negative); Opiate Screen Urine Positive (Negative); Phencyclidine Screen Urine Negative (Negative)
--- NOTE | 2024-01-22 23:25 | PM.IMHP ---
H&P: HPI History of Present Illness Date/Time: 01/22/24 23:25 Chief Complaint: Patient came to the ER for evaluation with complaints of nausea vomiting and diarrhea since this morning Narrative: Our patient is an unfortunate 48 years old male with insulin-dependent diabetes mellitus who currently uses insulin pump. He states that his blood sugar levels have been reading high recently. He a has a history of DKA. He also admits to smoking, alcohol use and polydrug use including marijuana and cocaine. He is complaining of nausea, vomiting and diarrhea which started at 11:00 a.m.Today. He had numerous episodes of nonbloody and nonbilious vomits. Workup done in the ER which showed positive and a gap and findings consistent with with diabetic ketoacidosis. Patient given IV insulin and started on DKA treatment protocol with insulin, fluids and potassium. ICU was consulted and patient is being admitted, for follow-up of electrolytes and further workup and management. Review of Systems Review of Systems: 14 systems were reviewed with pertinent positives and negatives per HPI. Except as documented in the HPI/progress notes, all other systems were reviewed and are negative. All systems reviewed & are unremarkable except as noted in HPI and below PMFSH Past Medical History Medical History Abnormal small bowel biopsy Anemia B12 deficiency Celiac disease Depression DKA (diabetic ketoacidosis) High thyroid stimulating hormone (TSH) level Hypothyroidism Leukocytosis Long-term insulin use Nausea Type 1 diabetes mellitus with hyperosmolar hyperglycemic state (HHS) Surgical History Surgical History Hx of cholecystectomy S/P knee surgery Left knee Family History Family History Father Lung cancer metastatic to brain Lung cancer associated cerebellar ataxia Mother Acute myocardial infarction Cerebrovascular accident Social History Social History Social History: The patient has a significant other. He has a daughter. 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 He denies any alcohol or illicit drugs. He does not have a durable power attorney law clerk for healthcare. (This Note was in this Mr. Galaviz's chart before he became a patient of Dr. Amos's 11/2022) Code status full code Smoking packs per day: 0.5 Smoking cigarettes per day: 10.0 Years smoked: 35 Smoking pack-years: 17.50 Smoking status: Current every day smoker Tobacco type: cigarettes Second hand tobacco smoke exposure: Yes Alcohol intake: current Drinks per week: 5 Alcohol use details: Rumble Lora, rarely 2-3 shots per month Substance use: current Substance use type: marijuana and crack/cocaine Other substance usage details: daily, going to be quitting Last use: 01/17/24 Lack of Transportation: No Lack of Food: Never True Current Housing: I Have Housing Concerned About Future Housing: No Difficulty Paying Gas/Electric Bills: No Difficulty Paying for Meds: No Currently Unemployed: No Education: Associate Degree Difficulty w/ Childcare or Family Care: No Living arrangements: with friend(s) Occupation/Education: occupation Additional occupation/education comments: Construction Gender identity (if verbalized by the patient): Male Spiritual care concerns: No Agree to blood products: Yes Meds Home Medications and Allergies Home Medications Medication Instructions Recorded Confirmed Type blood sugar diagnostic (Contour #400 ea 06/13/20 01/22/24 Rx Next Test Strips) blood sugar diagnostic (Accu-Chek #400 ea 11/25/20 01/22/24 Rx Guide test strips) flash glucose sensor (FreeStyle #6 ea 02/12/23 01/22/24 Rx Nicolás 2 Sensor kit)
--- NOTE | 2024-01-22 23:35 | PC.NURSE ---
Voicemail left with life skills educator notifying of patient in ICU at 0714.
[2024-01-22] MEDS: KCL 20 MEQ/D5/0.45% SOD CHL 1,000 ML 150 ML IV CONT (23:49)
[2024-01-22 23:55] LABS: Glucose Point of Care 247 mg/dl (65-105)
[2024-01-23] VITALS (10 sets, daily range): BP systolic 126–153; BP diastolic 73–99; PULSE 87–111; RESP 17–28; TEMP 36.9–37.6; O2SAT 93–100; BMI 23.0
[2024-01-23] MEDS: SODIUM CHLORIDE 0.9% IV 1,000 ML 150 ML IV CONT (00:41)
[2024-01-23 00:47] LABS: Glucose Point of Care 324 mg/dl (65-105)
[2024-01-23 00:54] LABS: Anion Gap 11 mmol/L (4-12); Blood Urea Nitrogen 15 mg/dL (9-20); Calcium 8.3 mg/dL (8.4-10.2); Carbon Dioxide 17 mmol/L (22-30); Chloride 109 mmol/L (98-107); Estimated CRCL calculation 131 ml/min; Estimated Glomerular Filt Rate > 60; Glucose 315 mg/dL (65-110); Potassium 4.3 mmol/L (3.4-5.0); Sodium 137 mmol/L (137-145)
[2024-01-23 01:46] LABS: Glucose Point of Care 267 mg/dl (65-105)
[2024-01-23 02:50] LABS: Glucose Point of Care 196 mg/dl (65-105)
[2024-01-23 03:52] LABS: Glucose Point of Care 173 mg/dl (65-105)
[2024-01-23 04:28] LABS: Anion Gap 5 mmol/L (4-12); Blood Urea Nitrogen 14 mg/dL (9-20); Calcium 8.8 mg/dL (8.4-10.2); Carbon Dioxide 21 mmol/L (22-30); Chloride 111 mmol/L (98-107); Estimated CRCL calculation 131 ml/min; Estimated Glomerular Filt Rate > 60; Glucose 179 mg/dL (65-110); Magnesium 2.1 mg/dL (1.6-2.3); Phosphorus 1.5 mg/dL (2.5-4.5); Potassium 3.8 mmol/L (3.4-5.0); Sodium 137 mmol/L (137-145)
[2024-01-23 04:44] LABS: Glucose Point of Care 199 mg/dl (65-105)
[2024-01-23 06:46] LABS: Glucose Point of Care 202 mg/dl (65-105)
[2024-01-23 06:47] LABS: Glucose Point of Care 226 mg/dl (65-105)
[2024-01-23 08:31] LABS: Glucose Point of Care 253 mg/dl (65-105)
--- NOTE | 2024-01-23 08:49 | WPDCNINT ---
Assessment and Plan Assessment and plan (1) DKA (diabetic ketoacidosis): Qualifiers: Diabetes mellitus complication detail: without coma Diabetes mellitus type: type 1 Qualified Code(s): E10.10 - Type 1 diabetes mellitus with ketoacidosis without coma Code(s): E11.10 - Type 2 diabetes mellitus with ketoacidosis without coma Status: Acute Assessment and Plan: patient is admitted with DKA. no signs of infection as UA and chest x-ray was negative. WBC minimally elevated patient was given IVF bolus and started oninfusion patient was started on Insulin infusion and Q1H glucose monitoring done Serial labs were performed patient's anion gap has now closed. he is asymptomatic and is eager to eat and be discharged. Patient uses insulin pump at home but does not have his Dexcom sensor here. His insulin pump does not have an of insulin and he is trying to get his girlfriend to bring insulin cartridge from home. At this time I will start patient on diet but continue Titratable insulin infusion until we can obtain his insulin pump and then transition him directly to his insulin pump. Patient is admitted that he would like to be discharged today and is working to get his insulin pump cartridge brought in by his girlfriend home. Dietitian and telehealth nurse educator consult (2) Acute nausea with nonbilious vomiting: Code(s): R11.2 - Nausea with vomiting, unspecified Status: Acute Assessment and Plan: Secondary to DKA.. Resolved Plan DVT prophylaxis - patient ambulating . SCDs ordered while in the bed Nutrition - diabetic diet Code Status - Patient wishes to be Full Code Tower Attendant Consult Note Consult date: 01/23/24 Reason for consult: DKA HPI: Jesus Galaviz is a 48 year old male with past medical history of insulin-dependent diabetes presented to ER yesterday with with acute onset nausea, vomiting, and diarrhea starting at approximately 11:00 a.m. yesterday. no blood in the vomitus or stool. no abdominal pain. he normally has insulin pump and Dexcom blood glucose monitor. he stated that his blood sugars have been running high.. He denied any chest pain shortness a breath fever cough dizziness lightheadedness loss of consciousness. all other systems were reviewed and were negative. Patient was found to be having DKA with elevated anion gap, metabolic acidosis. he was given IV fluid bolus and started on IV insulin infusion. nausea vomiting was treated symptomatically. CT scan of the abdomen pelvis negative. UA and and chest x-ray were negative. Patient was admitted to ICU for further evaluation management. Review of Systems Review of Systems: All systems reviewed & are unremarkable except as noted in HPI and below ( HPI) [facility] Past Medical History Medical History Abnormal small bowel biopsy Anemia B12 deficiency Celiac disease Depression DKA (diabetic ketoacidosis) High thyroid stimulating hormone (TSH) level Hypothyroidism Leukocytosis Long-term insulin use Nausea Type 1 diabetes mellitus with hyperosmolar hyperglycemic state (HHS) Surgical History Surgical History Hx of cholecystectomy S/P knee surgery Left knee Family History Family History Father Lung cancer metastatic to brain Lung cancer associated cerebellar ataxia Mother Acute myocardial infarction Cerebrovascular accident Social History Social History Social History: The patient has a significant other. He has a daughter. 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 He denies any alcohol or illicit drugs. He does not have a durable power assistant district attorney for healthcare. (This Note was in this Mr. Galaviz's chart before he b
[2024-01-23 09:02] LABS: Anion Gap 5 mmol/L (4-12); Blood Urea Nitrogen 13 mg/dL (9-20); Calcium 8.4 mg/dL (8.4-10.2); Carbon Dioxide 22 mmol/L (22-30); Chloride 110 mmol/L (98-107); Estimated CRCL calculation 131 ml/min; Estimated Glomerular Filt Rate > 60; Glucose 253 mg/dL (65-110); Potassium 4.3 mmol/L (3.4-5.0); Sodium 137 mmol/L (137-145)
[2024-01-23 09:42] LABS: Glucose Point of Care 220 mg/dl (65-105)
[2024-01-23 10:40] LABS: Glucose Point of Care 291 mg/dl (65-105)
[2024-01-23] MEDS: POTASSIUM/PHOSPHORUS/SODIUM 1.5 GM PACKET 1 PACKET PO (10:40)
[2024-01-23 11:56] LABS: Glucose Point of Care 312 mg/dl (65-105)
--- NOTE | 2024-01-23 15:27 | PM.DS ---
DS: Admitting Diagnosis Discharge Date 01/23/24 Admitting Diagnosis Nausea/Vomiting/Diarrhea DS: Discharge Diagnosis Discharge Diagnosis (1) DKA (diabetic ketoacidosis): Qualifiers: Diabetes mellitus complication detail: without coma Diabetes mellitus type: type 1 Qualified Code(s): E10.10 - Type 1 diabetes mellitus with ketoacidosis without coma Code(s): E11.10 - Type 2 diabetes mellitus with ketoacidosis without coma Status: Acute (2) Acute nausea with nonbilious vomiting: Code(s): R11.2 - Nausea with vomiting, unspecified Status: Acute (3) Tobacco dependence: Code(s): F17.200 - Nicotine dependence, unspecified, uncomplicated Status: Acute (4) Celiac disease: Code(s): K90.0 - Celiac disease Status: Acute (5) Type 1 diabetes mellitus: Qualifiers: Diabetes mellitus complication status: with hyperglycemia Qualified Code(s): E10.65 - Type 1 diabetes mellitus with hyperglycemia Code(s): E10.9 - Type 1 diabetes mellitus without complications Status: Chronic (6) Insulin pump in place: Code(s): Z96.41 - Presence of insulin pump (external) (internal) Status: Acute DS: Summary Hospital Course Reason for hospitalization: 48yo male with Type I DM here for Nausea/Vomiting/Diarrhea. Please see H&P for details Hospital Course: Patient was found to have DKA and admitted to the ICU of DKA protocol. No signs of infection as UA and chest x-ray were negative. COVID and influenza PCR negative. WBC minimally elevated felt related to stress response. Patient was given IVF bolus and started on fluids and insulin infusion with Q1H glucose monitoring. Serial labs were performed and his gap closed. He became asymptomatic and was eager to eat and be discharged. Patient uses insulin pump at home but does not have his Dexcom sensor here. His insulin cartridge was very low and he was drinking heavily the night before which he feels was the cause of the DKA. He was able to have family bring in insulin pump and this was started. The insulin drip was stopped once he was back on his insulin pump. He has a Dexcom but also has a meter at home so has resources to monitor his glucose. He denies that he is a heavy drinker. He was advised to drink alcohol in moderation and to stop smoking. UDS was positive for opiates and marijuana but he received opiates in the ED prior to having UDS done. Diet was started and patient was able to eat normally. He overall did well and was able to be discharged home on 01/23/24. Status at Discharge Cognitive/behavioral status at discharge: stable Time Spent with Patient Time attestation: Total time spent providing and/or coordinating discharge services: 35 minutes Time spent: Greater than 30 minutes Exam Narrative: AF 99.6 [id number] 87 18 100% ra Gen - NARD Chest - CTA bilaterally, nml RR CV - RRR S1/S2. Tele showing no significant dysrhythmias Abd - Soft, NT/ND, Positive BS Ext - No pedal edema. 2+ DP bilaterally Psych - Nml mood and affect Skin - Warm and dry DS: Data Data Completed and Pending Labs on day of discharge: Labs from last 24 hours 01/23/24 01/23/24 01/23/24 11:48 10:38 09:36 WBC RBC Hgb Hct MCV MCH MCHC RDW Plt Count MPV Immature Gran % (Auto) Neut % (Auto) Lymph % (Auto) [place] % (Auto) Eos % (Auto) Baso % (Auto) Lymph # (Auto) [place] # (Auto) Eos # (Auto) Baso # (Auto) Abs Immat Gran (auto) Absolute Neuts (auto) Absolute Nucleated RBC Nucleated RBC % Sodium Potassium Chloride Carbon Dioxide Anion Gap BUN Creatinine Estim Creat Clear Calc Estimated GFR Glucose POC Capillary Glucose 312 H 291 H 220 H Hemoglobin A1c Calcium Phosphorus Magnesium Total Bilirubin AST ALT Alkaline Phosphatase Total Protein Albumin Lipase
== END 2024-01-23 16:10 | disposition home or self-care (01) | DRG 639 ==
LOC: ANHED 15:57 → ANHICU 21:23
PROVIDERS: Internal Medicine; Admitting Provider Family Medicine; Emergency Provider Student in an Organized Health Care Education/Training Program; PCP Family Medicine; Visit Provider Internal Medicine
DX: E10.10 Type 1 diabetes mellitus with ketoacidosis without coma (principal); E10.65 Type 1 diabetes mellitus with hyperglycemia; K90.0 Celiac disease; D64.9 Anemia, unspecified; E03.9 Hypothyroidism, unspecified; I10 Essential (primary) hypertension; R74.8 Abnormal levels of other serum enzymes; F41.9 Anxiety disorder, unspecified; E53.8 Deficiency of other specified B group vitamins; F17.210 Nicotine dependence, cigarettes, uncomplicated; Z96.41 Presence of insulin pump (external) (internal); Z20.822 Contact with and (suspected) exposure to COVID-19; Z90.49 Acquired absence of other specified parts of digestive tract
CPT/HCPCS: 36415; 71045; 74177; 80048; 80053; 80307; 81001; 82010; 82948; 83036; 83690; 83735; 84100; 85025; 87636; 93005; 99285; A9270; J0780; J1630; J1815; J2270; J2405; J3475; J3480; J7030; Q9967